=== PATIENT | male | born 1945 | race Two or more races ===

== ENCOUNTER 2024-09-10 17:08 | Emergency (ER) | payer MEDICARE, MEDICAID, SELFPAY ==
[2024-09-10 17:22] VITALS: BP 135/66; PULSE 83; PULSE 86; RESP 16; RESP 19; TEMP 37; O2SAT 100; O2SAT 99; BMI 19.9
--- NOTE | 2024-09-10 17:34 | PD.EDAMS ---
Altered Mental Status RME/HPI General Chief Complaint: Altered Mental Status Stated Complaint: ALTERED Time Seen by Provider: 09/10/24 17:12 Arrival date/time: 09/10/24 17:08 This section includes all my notes and documentations, including HPI, PE, and ED course. Leeroy Stovall MD HPI: 78-year-old male here to be evaluated with AMS. A bystander called 911 because he was on the ground outside confused. EMS noted glucose of 40 and he was given IV glucose. But GCS was 15 prior and after glucose administration. Patient thinks he fell. But he doesn't remember exactly. He has pain in the left rib cage. He doesn't remember the ambulance ride. He knows he was born in 1946 but can't calculate his age. Does not know the current year. Knows he is in [place]. He reports no headache or dizziness. No neck pain or back pain. No chest pain or shortness of breath. No pain in the arms or legs. No other complaints. ROS: All negative except as documented in HPI. Physical Exam: General: Alert. No acute distress when remaining still. Eyes: Conjunctivae and lids clear. EOMI. PERRL. ENT: No nasal congestion. Pharynx normal. Tympanic membrane normal bilaterally. Neck: Supple. No tenderness. Heart: RRR. Lungs: No respiratory distress. Good air movement. No rhonchi, wheezing, rales. Chest: Tenderness of the left rib cage laterally. Abdomen: Soft and nontender. Normal bowel sounds. No distension. No rebound or guarding. Back: No tenderness. Legs: No clubbing, cyanosis, edema. Skin: Warm and dry. Neuro: Alert and oriented X 2. Cranial Nerves II-XII grossly intact. No peripheral motor deficits. Musculoskeletal: All major joints and bones are not tender with no limited ROM. I ordered diagnostic tests. At 6 PM on 09/10/2024, the care of the patient was transferred to Dr. ROMERO. Leeroy Stovall MD Related Data Home Medications ?Medication ?Instructions ?Recorded ?Confirmed No Known Home Medications 07/02/22 07/02/22 Allergies Allergy/AdvReac Type Severity Reaction Status Date / Time No Known Allergies Allergy Verified 04/16/24 16:38 Course Quality Measures none Vital Signs Vital signs: Vital Signs Temperature 98.6 F 09/10/24 17:22 Pulse Rate 83 09/10/24 17:22 Respiratory Rate 16 09/10/24 17:22 Blood Pressure 135/66 H 09/10/24 17:22 Pulse Oximetry (%) 100 09/10/24 17:22 Oxygen Delivery Method Room Air 09/10/24 17:22 Altered Mental Status Patient data External records reviewed:: None Clinical information provided by:: patient and EMS Social determinants that could affect healthcare access:: none (Probable homelessness) Patient has the following chronic illnesses:: Unknown How is presenting disease/condition affected by chronic disease/condition?: exacerbated by Evaluation data The following diagnostics were reviewed and interpreted by me:: other (specify) (Diagnostic test results pending) Lab and/or radiology exams considered but not ordered:: None Interpretation Summary: Diagnostic test results pending Medications / Prescriptions Medications or Prescriptions considered but not ordered:: None Medication administrations:: None Consultations Consultation(s) initiated? (list below): No Diagnosis Differential diagnosis altered mental status: alcoholic intoxication, altered mental status, delirium, dementia, hypoglycemia, hyponatremia, subarachnoid hemorrhage and sepsis Most likely diagnosis given after review of the tests above:: Diagnostic test results pending Admission Indicated Admission indicated?: not indicated Explain why admission is indicated or not indicated:: Diagnostic test results pending Admission Request Was there a request for admission?: No Disposition Plan Disposition Plan: other (specify) (Diagnostic test results pending) Discharge Plan Prescriptions/Referrals Prescriptions/Med Rec: No Action No Known Home Medications Referrals: No Primary/Family,Physician [Primary Care Provider] - In 1 week Problem List Clinical Impression: Altered mental status Patient/Caregiver Discharge Instructions Print Language: [place]
--- NOTE | 2024-09-10 17:40 | XR_ITS ---
Examination: AP chest single view Technique: AP portable semiupright chest single view Exam date and time: September 10, 2024 1809 hrs. Comparison June 29, 2024 Indications: Shortness of breath today Findings: Normal heart size Lungs are clear Mild elevation left hemidiaphragm Moderate osteopenia Impression: No pneumonia or pulmonary edema
--- NOTE | 2024-09-10 17:40 | EKG_ITS ---
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: : 1945 Requested By: Leeroy Ham Order Number: [id number] Reading MD: Leeroy Ham Measurements Intervals [place] Rate: 86 P: NM: QRS: 103 QRSD: 91 T: 109 QT: 381 QTc: 458 Interpretive Statements SUPRAVENTRICULAR RHYTHM MARKED RIGHT AXIS DEVIATION [QRS AXIS > 100] ST ELEVATION, PROBABLY EARLY REPOLARIZATION [ST ELEVATION WITH NORMALLY INFLECTED T WAVE] Compared to ECG 06/29/2024 10:34:51 Supraventricular rhythm now present Right-axis deviation now present ST (T wave) deviation now present Early repolarization now present Sinus rhythm no longer present /store/S0/[id number]/[id number].pdf
--- NOTE | 2024-09-10 17:40 | XR_ITS ---
Examination: CT cervical spine without contrast 2-D sagittal reconstructions 2-D coronal reconstructions 3-D reconstructions. Exam date and time:September 10, 2024 at 2039 hrs. Indications: Patient fell today with into the neck, neck pain CTDI:vol (mGy) 7.29 DLP: (mGycm) 157 Technique: Multiple 2 mm axial sections of the cervical spine have been obtained. The coronal and sagittal reconstructions have been obtained. 3-D reconstructions have been obtained. Low dose protocols were performed. One or more of the following dose reduction techniques were used; automated exposure control, adjustment of the mA and/or KV according to patient size, use of iterative reconstruction technique. Findings: Axial sections demonstrate intact base of the skull. C1 exhibit satisfactory relationship to the odontoid. No acute cervical vertebral body fracture seen. Alignment posterior spinous processes satisfactory. Impression: No acute cervical fracture.
--- NOTE | 2024-09-10 17:40 | XR_ITS ---
Examination: CT brain head without contrast. 2-D sagittal coronal reconstructions Date and time of exam:September 10, 20242038 hrs. Indications: Altered mental status today CTDI: vol (mGy):46.2 DLP: (mGycm):931 Technique: Multiple CT axial sections of the brain have been obtained, 5 mm slice thickness. Contrast has not been administered. 2-D sagittal, coronal reconstructions have been obtained Low dose protocols were performed. One or more of the following dose reduction techniques were used; automated exposure control, adjustment of the mA and/or KV according to patient size, use of iterative reconstruction technique. Findings: No significant ventricular enlargement. Encephalomalacia left frontal lobe Intra-axial or extra-axial hemorrhage density is not seen. No mass effect or midline shift Basal cisterns are not remarkable. Fourth ventricle is midline. Cranial vault intact. Impression: Negative for acute hemorrhage, mass effect or midline shift Advise clinical correlation and follow-up accordingly
[2024-09-10 18:19] LABS: Lactate (Lactic Acid) 1.9 mMol/L (0.4-2.0)
[2024-09-10 18:23] LABS: Beta Hydroxybutyrate 0.2 mmol/L (<0.6)
[2024-09-10 18:34] LABS: Basophils % (Auto) 1 % (0-2.5); Eosinophils % (Auto) 1 % (0-10); Hematocrit 37.8 % (41.0-53.0); Hemoglobin 12.3 g/dL (13.5-16.0); Immature Granulocytes % (Auto) 0 % (0-0); Immature Granulocytes Auto 0.02 Thou/mm3 (0.00-0.00); Lymphocytes # (Auto) 1.2 Thou/mm3 (1.0-4.8); Lymphocytes % (Auto) 20 % (10-50); Mean Corpuscular HGB Conc 32.5 g/dl (31.0-37.0); Mean Corpuscular Hemoglobin 31.5 pg (25.0-35.0); Mean Corpuscular Volume 97 fL (80-100); Monocytes # (Auto) 0.5 Thou/mm3 (0.0-0.8); Monocytes % (Auto) 9 % (0-12); Neutrophils # (Auto) 4.3 Thou/mm3 (1.8-7.7); Neutrophils % (Auto) 71 % (37-80); Nucleated Red Blood Cell % 0 /100 WBC (0); Platelet Count 214 Thou/mm3 (140-440); RDW Standard Deviation 49.6 fL (35.1-43.9); Red Blood Count 3.91 Miln/mm3 (4.50-5.90); White Blood Count 6.2 Thou/mm3 (3.8-10.6)
[2024-09-10 18:37] LABS: D-Dimer 544 ng/mL (<600)
[2024-09-10 18:43] LABS: B-Type Natriuretic Peptide 316 pg/mL (0-100)
[2024-09-10 18:44] LABS: Sed Rate (ESR) 12 mm/hr (0-20)
[2024-09-10 18:55] LABS: Acetaminophen < 2.0 mcg/mL (10.0-20.0); Alanine Aminotransferase 49 U/L (10-49); Albumin/Globulin Ratio 1.8 (1.2-2.2); Alcohol, Blood Medical 206.3 mg/dL (0-10.0); Alkaline Phosphatase 72 U/L (46-116); Anion Gap 6 (7-16); Aspartate Amino Transferase 79 U/L (0-34); BUN/Creatinine Ratio 9 Ratio (12-20); Bilirubin,Total 0.5 mg/dL (0.3-1.2); Blood Urea Nitrogen 12 mg/dL (9-23); C-Reactive Protein 0.4 mg/dL (0.0-0.9); Calcium 8.9 mg/dL (8.3-10.6); Calcium (Corrected) 8.9 mg/dL (8.5-10.1); Carbon Dioxide 28.8 mMol/L (20.0-31.0); Chloride 100 mMol/L (98-107); Creatine Kinase 336 U/L (34-171); Creatinine (Component) 1.3 mg/dL (0.6-1.3); Estimated Creatinine Clearance 39.9 mL/min (>60); Globulin 2.2 gm/dL (2.3-3.5); Glucose 149 mg/dL (74-106); Magnesium 2.1 mg/dL (1.6-2.6); Osmolality,Calculated 272 (275-295); Potassium 4.3 mMol/L (3.4-5.1); Procalcitonin 0.06 ng/ml (0.0-0.49); Salicylate < 3.0 mg/dL; Sodium 135 mMol/L (136-145); Thyroid Stimulating Hormone 3.37 uIU/mL (0.55-4.78); Total Protein 6.2 gm/dL (5.7-8.2); Troponin I < 0.020 ng/mL (0.0-0.045); eGFR 56 See Note
[2024-09-10 18:56] LABS: Partial Thromboplastin Time 25.6 Seconds (22.0-36.0); Prothrombin Time 11.4 Seconds (9.0-12.2)
[2024-09-10 19:20] VITALS: BP 108/62; PULSE 101; RESP 17; TEMP 36.6; O2SAT 99
[2024-09-10 19:30] LABS: Collection Type, Urine Clean Catch; RBC,Urine 0 /hpf (0-3); WBC,Urine 0 /hpf (0-5)
[2024-09-10 19:35] LABS: Bilirubin,Urine Negative (Negative); Blood,Urine Negative (Negative); Clarity,Urine Clear (Clear/Hazy); Color,Urine Colorless (Lt Yel-Yel); Culture Indicated,Urine Not Indicated; Glucose, Urine Negative (Negative); Ketones,Urine Negative (Negative); Leukocyte Esterase,Urine Negative (Negative); Nitrite,Urine Negative (Negative); Protein,Urine Negative (Neg - Trace); Specific Gravity,Urine 1.005 (1.001-1.035); Squamous Epithelial Cell,Urine < 1 /hpf (0-5); Urobilinogen,Urine Negative mg/dL (0.0-1.0)
[2024-09-10 19:40] LABS: Amphetamine/Methamp Scrn,U Negative (Negative); Barbiturate Screen,Urine Negative (Negative); Benzodiazepines Screen,Urine Negative (Negative); Benzoylecgonine Screen, Ur Negative (Negative); Fentanyl Screen,Urine Negative (Negative); Opiate Screen,Urine Negative (Negative); THC Screen,Urine Negative (Negative)
--- NOTE | 2024-09-10 19:40 | EDNOTE_ITS ---
Emergency Room Addendum Addendum Narrative: 1800: Care assumed from Dr. Stovall, the previous shift emergency physician. Past medical, surgical, social and family history reviewed. Vitals and home medications reviewed. I will assume the care of the patient at this time, pending remainder of diagnostic tests and final disposition. Please refer to the emergency department record for history and examination from initial visit.? Physical exam by me shows patient under no acute distress at this time. 2350: Patient remains clinically stable throughout the emergency department visit. Re-assessment at the time of disposition demonstrates that the patient is in no acute distress. We reviewed all the results, analysis, and treatment plans. Patient is amenable to discharge. Strict return precautions were outlined. Patient was discharged in stable condition. Diagnoses: AMS, Alcohol intoxication, Hypoglycemia. RADIOLOGY Procedure(s): CT head/brain wo [facility] Accession Number(s): [id number] cc: Leeroy Stovall MD; Alli Beckman MD; NO PRIMARY/FAMILY,PHYSICIAN~ Examination: CT brain head without contrast. 2-D sagittal coronal reconstructions Date and time of exam:September 10, 20242038 hrs. Indications: Altered mental status today CTDI: vol (mGy):46.2 DLP: (mGycm):931 Technique: Multiple CT axial sections of the brain have been obtained, 5 mm slice thickness. Contrast has not been administered. 2-D sagittal, coronal reconstructions have been obtained Low dose protocols were performed. One or more of the following dose reduction techniques were used; automated exposure control, adjustment of the mA and/or KV according to patient size, use of iterative reconstruction technique. Findings: No significant ventricular enlargement. Encephalomalacia left frontal lobe Intra-axial or extra-axial hemorrhage density is not seen. No mass effect or midline shift Basal cisterns are not remarkable. Fourth ventricle is midline. Cranial vault intact. Impression: Negative for acute hemorrhage, mass effect or midline shift Advise clinical correlation and follow-up accordingly Dictated By: Alli Beckman MD Procedure(s): XR chest 1V portable Accession Number(s): [id number] cc: Leeroy Stovall MD; Alli Beckman MD; NO PRIMARY/FAMILY,PHYSICIAN~ Examination: AP chest single view Technique: AP portable semiupright chest single view Exam date and time: September 10, 2024 1809 hrs. Comparison June 29, 2024 Indications: Shortness of breath today Findings: Normal heart size Lungs are clear Mild elevation left hemidiaphragm Moderate osteopenia Impression: No pneumonia or pulmonary edema Dictated By: Alli Beckman MD Procedure(s): CT cervical spine wo con Accession Number(s): [id number] cc: Leeroy Stovall MD; Alli Beckman MD; NO PRIMARY/FAMILY,PHYSICIAN~ Examination: CT cervical spine without contrast 2-D sagittal reconstructions 2-D coronal reconstructions 3-D reconstructions. Exam date and time:September 10, 2024 at 2039 hrs. Indications: Patient fell today with into the neck, neck pain CTDI:vol (mGy) 7.29 DLP: (mGycm) 157 Technique: Multiple 2 mm axial sections of the cervical spine have been obtained. The coronal and sagittal reconstructions have been obtained. 3-D reconstructions have been obtained. Low dose protocols were performed. One or more of the following dose reduction techniques were used; automated exposure control, adjustment of the mA and/or KV according to patient size, use of iterative reconstruction technique. Findings: Axial sections demonstrate intact base of the skull. C1 exhibit satisfactory relationship to the odontoid. No acute cervical vertebral body fracture seen. Alignment posterior spinous processes satisfactory. Impression: No acute cervical fracture. Dictated By: Alli Beckman MD
[2024-09-10 21:02] VITALS: BP 115/62; PULSE 79; RESP 19; TEMP 36.9; O2SAT 96
[2024-09-10 23:08] VITALS: BP 90/55; PULSE 93; RESP 18; TEMP 36.9; O2SAT 96
[2024-09-11 00:46] VITALS: BP 114/69; PULSE 84; RESP 16; TEMP 36.6; O2SAT 98
== END 2024-09-11 00:50 | disposition home or self-care (01) ==
PROVIDERS: Emergency Medicine; Emergency Provider Emergency Medicine
DX: F10.129 Alcohol abuse with intoxication, unspecified (principal); E16.2 Hypoglycemia, unspecified; R41.82 Altered mental status, unspecified; R06.02 Shortness of breath; M54.2 Cervicalgia; W19.XXXA Unspecified fall, initial encounter
CPT/HCPCS: 36415; 36600; 70450; 71045; 72125; 80053; 80307; 80320; 80329; 81001; 82010; 82550; 82803; 83605; 83735; 83880; 84145; 84443; 84484; 85025; 85379; 85610; 85652; 85730; 86140; 87040; 87400; 87811; 93005; 99285; G0480

== ENCOUNTER 2024-11-13 13:43 | Emergency (ER) | payer MEDICARE, MEDICAID, SELFPAY ==
[2024-11-13 13:46] VITALS: PULSE 82; RESP 16; O2SAT 96; BMI 21.4
[2024-11-13 13:57] VITALS: BP 118/66; PULSE 62; RESP 16; TEMP 36.6; O2SAT 96
--- NOTE | 2024-11-13 14:30 | PD.EDALCOH ---
ED Alcohol RME/HPI General Chief Complaint: Alcohol Stated Complaint: ALCOHOL Time Seen by Provider: 11/13/24 14:17 Arrival date/time: 11/13/24 13:43 This is an 79-year-old male that comes into the emergency room comes into the emergency room with complaints of being hungry. Patient states he wants a sandwich. Patient is homeless. Patient denies any fever, nausea, vomiting, diarrhea,. Patient has no other complaints. Patient has a long hx of alcoholism. Pt admits to drinking Related Data Home Medications ?Medication ?Instructions ?Recorded ?Confirmed No Known Home Medications 07/02/22 09/10/24 Allergies Allergy/AdvReac Type Severity Reaction Status Date / Time No Known Allergies Allergy Verified 11/13/24 13:46 Review of Systems Review of Systems Systems Reviewed: All systems reviewed, normal except as documented Past Medical History Past Medical History CARDIAC: Negative Congestive Heart Failure RESPIRATORY: Negative Chronic Obstructive Pulmonary Disease (COPD) GENITOURINARY: Negative Renal Disease ENDOCRINE: Negative Diabetes Mellitus Type 1 or Diabetes Mellitus Type 2 OTHER HISTORY: Positive Blood Transfusions Social History SMOKING STATUS: Smoker, status unknown ED Exam General General appearance: Present alert and in no apparent distress Head Head exam: Present atraumatic Eye Eye exam: Present normal appearance, PERRL and EOMI ENT ENT exam: Present normal exam, normal oropharynx and mucous membranes moist Neck Neck exam: Present normal inspection, full ROM and trachea midline Chest Chest inspection: Present normal inspection and symmetric chest wall rise Respiratory Respiratory exam: Present normal lung sounds bilaterally Cardiovascular Cardiovascular exam: Present regular rate Abdominal Exam Abdominal exam: Present soft Extremities Exam Extremities exam: Present normal inspection and full ROM Back Exam Back exam: Present normal inspection and full ROM Neurological Exam Neurological exam: Present alert, oriented X3 and CN II-XII intact Psychiatric Psychiatric exam: Present normal affect and normal mood Skin Skin exam: Present warm, dry and intact Course Quality Measures none Vital Signs Vital signs: Vital Signs Temperature 97.8 F 11/13/24 13:57 Pulse Rate 62 11/13/24 13:57 Respiratory Rate 16 11/13/24 13:57 Blood Pressure 118/66 11/13/24 13:57 Pulse Oximetry (%) 96 11/13/24 13:57 Oxygen Delivery Method Room Air 11/13/24 13:57 Discharge Plan Plan Patient Disposition: HOME (Self Care) Patient condition on transfer: Stable Prescriptions/Referrals Prescriptions/Med Rec: No Action No Known Home Medications Problem List Clinical Impression: Alcoholic intoxication Patient/Caregiver Discharge Instructions Discharge Activity: activity as tolerated Education Materials: ED Alcohol Intoxication Additional Instructions: Follow up with primary provider in 1-2 days. Come back to ED if symptoms change or worsen Print Language: Polish Stand Alone Forms: Vi Award Info., Patient Portal Info Letter CHANO/ANA Supervising Physician LIANE Supervising Physician: haris Wallace MDM Narrative MDM Narrative: This is an 79-year-old male that comes into the emergency room comes into the emergency room with complaints of being hungry. Patient states he wants a sandwich. Patient is homeless. Patient denies any fever, nausea, vomiting, diarrhea,. Patient has no other complaints. Patient has a long hx of alcoholism. Pt admits to drinking Patient given food and beverage in the ED. He denies any complaints. Will dc patient after he eats Patient data External records reviewed:: [facility] previous records Clinical information provided by:: patient Social determinants that could affect healthcare access:: none (homeless) Patient has the following chronic illnesses:: hx alcoholism How is presenting disease/condition affected by chronic disease/condition?: exacerbated by Evaluation data The following diagnostics were reviewed and interpreted by me:: other (specify) (none ) Lab and/or radiology exams considered but not ordered:: none Interpretation Summary: none Medications / Prescriptions Medications or Prescriptions considered but not ordered:: none Medication administrations:: none Consultations Consultation(s) initiated? (list below): No Diagnosis Most likely diagnosis given after review of the tests above:: alcohol intoxication Admission Indicated Admission indicated?: not indicated Admission Request Was there a request for admission?: No Disposition Plan Disposition Plan: Discharge Discharge Attestation Discharge Attestation: The patient and all family members were given an opportunity to ask questions and understood the discharge instructions. Discharge instructions specifically effects, indications for sooner follow up or return to the emergency department, and the expected course of current diagnosis. Patient condition: Stable
== END 2024-11-13 16:28 | disposition home or self-care (01) ==
LOC: SERX 14:34
PROVIDERS: Emergency Provider Emergency Medicine; PCP Family Medicine
DX: F10.129 Alcohol abuse with intoxication, unspecified (principal); Z59.00 Homelessness unspecified
CPT/HCPCS: 99283

== ENCOUNTER 2025-02-25 04:04 | Emergency (ER) | payer MEDICARE, MEDICAID, SELFPAY ==
--- NOTE | 2025-02-25 04:11 | PD.EDNV ---
Nausea/Vomit./Diarrhea-RME/HPI General Chief complaint: Nausea/Vomiting/Diarrhea Stated complaint: DIARRHEA Arrival date/time: 02/25/25 04:04 RME / HPI RME / HPI Narrative: This section includes all my notes and documentations, including HPI, PE, and ED course. Leeroy Stovall MD HPI: 79 y/o male presents to ED c/o bowel incontinence x approximately 1 hour. He woke up covered in his feces, got up, sat on the toilet and began to empty his feces from his pants into the toilet. Patient has never lost control of his bowels before. He was unable to defecate anymore once on the toilet. Patient has full feeling, and denies any numbness or tingling. No other complaints. ROS: All negative except as documented in HPI. Physical Exam: General: Alert and oriented. Eyes: Conjunctivae and lids clear. ENT: No nasal congestion. Neck: Supple. Lungs: No respiratory distress. Skin: Warm and dry. Neuro: Alert and oriented X 3. Physical Exam: General: Alert and oriented. No acute distress when remaining still. Eyes: Conjunctivae and lids clear. ENT: No nasal congestion. Neck: Supple. Heart: RRR. Lungs: No respiratory distress. Good air movement. No rhonchi, wheezing, rales. Abdomen: Soft and nontender. Normal bowel sounds. No distension. No rebound or guarding. Back: No CVA tenderness. Skin: Warm and dry. Neuro: Alert and oriented X 3. Physical Exam: General: Alert and oriented. No acute distress. Eyes: Conjunctivae and lids clear. EOMI. PERRL. ENT: No nasal congestion. Pharynx normal. Tympanic membrane normal bilaterally. Neck: Supple. No lymphadenopathy. No JVD. Heart: RRR. Lungs: No respiratory distress. Good air movement. No rhonchi, wheezing, rales. Chest: No tenderness. Abdomen: Soft and nontender. Normal bowel sounds. No distension. No rebound or guarding. Back: No CVA tenderness. Legs: No clubbing, cyanosis, edema. Skin: Warm and dry. Neuro: Alert and oriented X 3. Cranial Nerves II-XII grossly intact. No peripheral motor deficits. Musculoskeletal: All major joints and bones are not tender with no limited ROM. I reviewed EMS notes. I reviewed all diagnostic test results. My interpretation of the EKG is My interpretation of the chest x-ray is My review of the CT report is Blood tests and urine tests At this point, diagnoses include Treatment here included Significant improvement Not yet done: I discussed the case with our hospitalist. About the presentation and exam and diagnostics and treatments here. And need of further care in the hospital. Will accept the patient. Not yet done: Based on my best medical judgment, made decision no further evaluation or treatment indicated at this time. Patient understands and agrees to the discharge instructions customized and printed, see below. Leeroy Stovall MD Related Data Home Medications ?Medication ?Instructions ?Recorded ?Confirmed No Known Home Medications 07/02/22 09/10/24 Allergies Allergy/AdvReac Type Severity Reaction Status Date / Time No Known Allergies Allergy Verified 02/25/25 04:32 Review of Systems Review of Systems Systems Reviewed: All systems reviewed, normal except as documented Past Medical History Past Medical History OTHER HISTORY: Positive Blood Transfusions ED Exam Narrative Physical exam: Refer to HPI above Course Quality Measures none Vital Signs Vital signs: Vital Signs Temperature 98.0 F 02/25/25 04:23 Pulse Rate 70 02/25/25 04:23 Respiratory Rate 18 02/25/25 04:23 Blood Pressure 157/80 H 02/25/25 04:23 Pulse Oximetry (%) 99 02/25/25 04:23 Oxygen Delivery Method Room Air 02/25/25 04:23 Nausea/Vomiting/Diarrhea MDM Narrative MDM Narrative:: Scribe Attestation: ILisa, am scribing for and in the presence of Dr. Stovall. Provider Notation: Although this document has been carefully reviewed, there may still be some phonetic and other typographical errors.? These errors are purely grammatical due to imperfections in the software program and should not be construed in any way to? compromise the substance of the patient's medical care during this visit. 79 y/o male presents to ED c/o bowel incontinence x approximately 1 hour. He woke up covered in his feces, got up, sat on the toilet and began to empty his feces from his pants into the toilet. Patient has never lost control of his bowels before. He was unable to defecate anymore once on the toilet. Patient has full feeling, and denies any numbness or tingling. No other complaints. Patient data External records reviewed:: [facility] previous records (Reviewed prior ED records from 11/13/24. Patient was seen for Alcoholic intoxication.) and EMS form Clinical information provided by:: patient and EMS Social determinants that could affect healthcare access:: housing (Homeless) Patient has the following chronic illnesses:: None reported How is presenting disease/condition affected by chronic disease/condition?: no chronic disease Evaluation data Lab and/or radiology exams considered but not ordered:: None Medications / Prescriptions Medications / Prescriptions considered but not ordered:: None Consultations Consultation(s) initiated? (list below): No Diagnosis Nausea Differential Diagnosis: traveler's diarrhea, food poisoning, gastroenteritis, clostridium difficile infection, dehydration and other (Influenza, COVID-19, Colitis.) Admission Indicated Admission indicated?: not indicated Explain why admission is indicated or not indicated:: Signed-out to oncoming ED provider. Admission Request Was there a request for admission?: No Disposition Plan Disposition Plan: other (specify) (Signed-out to oncoming ED provider.) Discharge Plan Prescriptions/Referrals Prescriptions/Med Rec: No Action No Known Home Medications Patient/Caregiver Discharge Instructions Print Language: [place]
[2025-02-25 04:23] VITALS: BP 157/80; PULSE 70; RESP 18; TEMP 36.7; O2SAT 99
[2025-02-25 04:35] VITALS: PULSE 98; RESP 16; O2SAT 98
[2025-02-25 06:54] LABS: Lactate (Lactic Acid) 1.1 mMol/L (0.4-2.0)
[2025-02-25 06:58] LABS: Basophils % (Auto) 1 % (0-2.5); Eosinophils # (Auto) 0.1 Thou/mm3 (0.0-0.5); Eosinophils % (Auto) 1 % (0-10); Hematocrit 34.8 % (41.0-53.0); Immature Granulocytes % (Auto) 1 % (0-0); Immature Granulocytes Auto 0.03 Thou/mm3 (0.00-0.00); Lymphocytes # (Auto) 0.9 Thou/mm3 (1.0-4.8); Lymphocytes % (Auto) 16 % (10-50); Mean Corpuscular HGB Conc 34.5 g/dl (31.0-37.0); Mean Corpuscular Hemoglobin 32.3 pg (25.0-35.0); Mean Corpuscular Volume 94 fL (80-100); Monocytes # (Auto) 0.8 Thou/mm3 (0.0-0.8); Monocytes % (Auto) 14 % (0-12); Neutrophils # (Auto) 3.7 Thou/mm3 (1.8-7.7); Neutrophils % (Auto) 68 % (37-80); Nucleated Red Blood Cell % 0 /100 WBC (0); Platelet Count 139 Thou/mm3 (140-440); RDW Standard Deviation 47.1 fL (35.1-43.9); Red Blood Count 3.72 Miln/mm3 (4.50-5.90); White Blood Count 5.5 Thou/mm3 (3.8-10.6)
--- NOTE | 2025-02-25 07:05 | PD.EDNV ---
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 Per medics, patient reported bowel incontinence. Reportedly patient had woken up covered in his feces. Patient denies bowel incontinence in the past. Additionally complains of a fullness sensation in his abdomen. No other associated symptoms or complaints reported. Denies fever, chills, sweating. Denies chest pain, cough, shortness of breath. Denies nausea, vomiting. Denies dysuria, urinary frequency and urgency. Related Data Home Medications ?Medication ?Instructions ?Recorded ?Confirmed No Known Home Medications 07/02/22 09/10/24 Allergies Allergy/AdvReac Type Severity Reaction Status Date / Time No Known Allergies Allergy Verified 02/25/25 04:32 Review of Systems Review of Systems Narrative Review of Systems: GEN: No fever, no chills, no weight loss EYES: No discharge, no visual changes, no pain HEENT: No ear pain, no congestion, no sore throat PULM: No shortness of breath, no cough, no congestion CV: No chest pain, no dyspnea on exertion, no palpitations GI: No nausea, no vomiting, +diarrhea, no pain, no constipation : No frequency, no urgency, no dysuria MUSC/SKEL: No joint pain, no back pain SKIN: No rash PSYCH: No hallucinations, no depression HEME/LYMPH: No easy bleeding or bruising tendencies NEURO: No weakness, no headache Past Medical History Past Medical History CARDIAC: Negative Cardiac Disorders or Congestive Heart Failure RESPIRATORY: Negative Chronic Obstructive Pulmonary Disease (COPD) or Asthma GENITOURINARY: Negative Renal Disease ENDOCRINE: Negative Diabetes Mellitus Type 1 or Diabetes Mellitus Type 2 HEMATOLOGIC: Negative Sickle Cell Disease OTHER HISTORY: Positive Blood Transfusions Family History FAMILY HISTORY: Negative Family Cardiac Disorders Social History SMOKING STATUS: Never smoker ED Exam Narrative Physical exam: GENERAL APPEARANCE: alert and oriented x 4, well-developed, well-nourished, no acute distress, poor hygiene HEENT: Normocephalic, atraumatic; pupils equal, round, reactive to light; EOMI; mucous membranes pink, moist; oropharynx clear NECK: Supple LUNGS: CTABL; no wheezes, no rales, no rhonchi HEART: Regular rate, regular rhythm; normal S1, S2; no murmurs ABDOMEN: non distended; normal BS; soft, no tenderness, no guarding, no rebound; no masses, no organomegaly, no hernia BACK: no CVA tenderness EXTREMITIES: atraumatic; no edema NEUROLOGIC: awake; alert and oriented x4; cranial nerves II-XII grossly intact; no focal sensory or motor deficits PSYCHIATRIC: appropriate mood and affect SKIN: warm, dry, normal color; no rashes Course Quality Measures none Orders Category Date Time Status CBC Stat Lab 02/25/25 06:46 Completed CMP [Comprehensive Metabolic Panel] Stat Lab 02/25/25 06:43 Completed Lactate (Lactic Acid) Stat Lab 02/25/25 06:46 Completed Vital Signs Vital signs: Vital Signs Temperature 98.0 F 02/25/25 04:23 Pulse Rate 70 02/25/25 04:23 Respiratory Rate 18 02/25/25 04:23 Blood Pressure 157/80 H 02/25/25 04:23 Pulse Oximetry (%) 99 02/25/25 04:23 Oxygen Delivery Method Room Air 02/25/25 04:23 Pulse ox is 99% on room air which is adequate. Nausea/Vomiting/Diarrhea MDM Narrative MDM Narrative:: Tori Cameron am scribing for and in the presence of Dr. Saleem. 1037: On reassessment the patient is resting comfortably. Per RN, he tolerated po trial. Patient remains clinically stable throughout the emergency department visit. We reviewed all the results, analysis, and treatment plans. Patient is amenable to discharge. Strict return precautions were outlined. Patient data External records reviewed:: [facility] previous records (I reviewed ED visit on 11/13/2024 for alcohol intoxication ) and EMS form Clinical information provided by:: patient and EMS Social determinants that could affect healthcare access:: housing (currently staying at a homeless residential ) Patient has the following chronic illnesses:: none reported How is presenting disease/condition affected by chronic disease/condition?: no chronic disease Evaluation data The following diagnostics were reviewed and interpreted by me:: lab results Lab and/or radiology exams considered but not ordered:: None Interpretation Summary: No leukocytosis Medications / Prescriptions Medications / Prescriptions considered but not ordered:: None Medication administrations:: None Consultations Consultation(s) initiated? (list below): No Diagnosis Nausea Differential Diagnosis: food poisoning, gastroenteritis, drug-induced nausea and vomiting and dehydration Most likely diagnosis given after review of the tests above:: Diarrhea Admission Indicated Admission indicated?: not indicated Admission Request Was there a request for admission?: No Disposition Plan Disposition Plan: Discharge Discharge Attestation Discharge Attestation: The patient and all family members were given an opportunity to ask questions and understood the discharge instructions. Discharge instructions specifically effects, indications for sooner follow up or return to the emergency department, and the expected course of current diagnosis. Patient condition: Stable Discharge Plan Plan Patient Disposition: HOME (Self Care) Prescriptions/Referrals Prescriptions/Med Rec: No Action No Known Home Medications Referrals: Eugene Franks MD [Primary Care Provider] - In 1 week Problem List Clinical Impression: Diarrhea Patient/Caregiver Discharge Instructions Education Materials: Self-Care for Vomiting and Diarrhea, ED Diarrhea, Unknown Cause Print Language: Sinhala Stand Alone Forms: Vi Award Info., Patient Portal Info Letter
[2025-02-25 07:24] LABS: Alanine Aminotransferase 36 U/L (10-49); Albumin, Serum 3.7 gm/dL (3.4-4.8); Albumin/Globulin Ratio 1.9 (1.2-2.2); Alkaline Phosphatase 63 U/L (46-116); Anion Gap 8 (7-16); Aspartate Amino Transferase 41 U/L (0-34); BUN/Creatinine Ratio 14 Ratio (12-20); Bilirubin,Total 0.6 mg/dL (0.3-1.2); Blood Urea Nitrogen 19 mg/dL (9-23); Calcium 8.7 mg/dL (8.3-10.6); Calcium (Corrected) 8.9 mg/dL (8.5-10.1); Carbon Dioxide 27.9 mMol/L (20.0-31.0); Chloride 106 mMol/L (98-107); Creatinine (Component) 1.4 mg/dL (0.6-1.3); Globulin 1.9 gm/dL (2.3-3.5); Glucose 96 mg/dL (74-106); Osmolality,Calculated 285 (275-295); Sodium 142 mMol/L (136-145); Total Protein 5.6 gm/dL (5.7-8.2); eGFR 51 See Note
[2025-02-25 08:08] VITALS: BP 139/82; PULSE 67; RESP 18; TEMP 36.9; O2SAT 99
[2025-02-25 09:47] VITALS: BP 132/83; PULSE 61; O2SAT 98
[2025-02-25 10:15] VITALS: BP 141/82; PULSE 71; RESP 18; TEMP 36.6; O2SAT 100
[2025-02-25 11:17] VITALS: BP 139/73; PULSE 93; RESP 17; TEMP 37.1; O2SAT 98
--- NOTE | 2025-02-25 11:17 | PC.CC ---
Sales Superintendent assisted with coordination of transportation- Uber was set up to transport to [facility] [place], pickle processor 11:14.
== END 2025-02-25 11:19 | disposition home or self-care (01) ==
PROVIDERS: Emergency Provider Emergency Medicine; PCP Family Medicine
DX: R19.7 Diarrhea, unspecified (principal); Z59.01 Sheltered homelessness
CPT/HCPCS: 36415; 80053; 83605; 85025

== ENCOUNTER 2025-03-10 18:01 | Emergency (ER) | payer MEDICARE, MEDICAID, SELFPAY ==
[2025-03-10 18:33] VITALS: BP 157/80; PULSE 77; RESP 18; TEMP 37.2; O2SAT 98; BMI 18.3
--- NOTE | 2025-03-10 18:57 | PD.EDRME ---
Rapid Medical Screening Exam RME Arrival date/time: 03/10/25 18:01 79M with history of homelessness and dementia presents to ED with friend for evaluation for placement. According to friend, Torsten MYLES has a place for him in the next few days and patient just needs to be evaluated. Patient can walk with assistance. Chief Complaint: General Adult/Misc Complain Vital signs: Vital Signs Temperature 98.9 F 03/10/25 18:33 Pulse Rate 77 03/10/25 18:33 Respiratory Rate 18 03/10/25 18:33 Blood Pressure 157/80 H 03/10/25 18:33 Pulse Oximetry (%) 98 03/10/25 18:33 Oxygen Delivery Method Room Air 03/10/25 18:33
[2025-03-10 23:02] VITALS: BP 135/75; PULSE 75; RESP 18; TEMP 37.2; O2SAT 98
--- NOTE | 2025-03-11 02:54 | PC.NURSE ---
PT AWAKE ,CALM, AMBULATING TO BATHROOM, NO COMPLAINT, RE ORIENTED.
--- NOTE | 2025-03-11 03:25 | PC.NURSE ---
PT ASLEEP, NO S/S OF ANY PROBLEM.
--- NOTE | 2025-03-11 04:52 | PC.NURSE ---
RE ORIENTED PT OF WHAT IS HE WAITING FOR.
[2025-03-11 06:27] VITALS: BP 149/76; PULSE 81; RESP 18; TEMP 36.7; O2SAT 98
[2025-03-11 07:26] VITALS: BP 131/75; PULSE 59; RESP 16; TEMP 36.8; O2SAT 99
--- NOTE | 2025-03-11 07:47 | PC.NURSE ---
PT GIVEN BREAKFAST TRAY AT THIS TIME WITH REGULAR DIET.
--- NOTE | 2025-03-11 08:05 | EDNOTE_ITS ---
Emergency Room Addendum Addendum Narrative: 0600: Care assumed from Dr. Saleem, the previous shift emergency physician. Past medical, surgical, social and family history reviewed. Vitals and home medications reviewed. I will assume the care of the patient at this time, pending vp digital marketing social media and crm consult for possible placement. Please refer to the emergency department record for history and examination from initial visit.? Physical exam by me at 0805 hours shows patient under no acute distress at this time. Sitting up eating breakfast. No complaints. Patient arrived at 620 PM 03/10/2025, yesterday, and has been here 12 hours already. Patient is requesting housing assistance until his friend is able to get him an apartment. The patient was placed in ED observation care at 03/11/2025 at 0600 hours. The patient was placed in ED observation care pending vp digital marketing social media and crm consult. The patients past medical history, social history, and family history were reviewed. The plan of care will include serial examinations. While in ED observation the patient will have access to water, food, and personal hygiene. If the patient takes home medication(s), they will be continued in ED observation. 0945: No need for physical therapy. Normal gait, witnessed going to the restroom. Patient remains clinically stable throughout the emergency department visit. Re-assessment at the time of disposition demonstrates that the patient is in no acute distress. We reviewed all the results, analysis, and treatment plans. Patient is amenable to discharge. Strict return precautions were outlined. 1006: Patient was discharged in stable condition. ED observation care ended at 03/11/2025 at 0945 hours.
--- NOTE | 2025-03-11 09:59 | PC.NURSE ---
PT AMBULATED AROUND ROOM INDEPENDENTLY WITH STEADY GAIT.
[2025-03-11 10:03] VITALS: BP 157/84; PULSE 81; RESP 19; TEMP 36.9; O2SAT 97
--- NOTE | 2025-03-11 10:13 | PC.CC ---
Per attending physician pt is nopt in need of PT eval and will need resources and transportation to retirement due to Pt being transient. High School Social Studies Tutor set up Uber transportation for Pt to [facility] [place].
--- NOTE | 2025-04-18 05:17 | PD.EDADULT ---
ED General RME/HPI General Chief complaint: General Adult/Misc Complain Stated complaint: Homeless needs eval for placement, dementia Arrival date/time: 03/10/25 18:01 RME / HPI RME / HPI narrative: 03/10/25 18:01 79M with history of homelessness and dementia presents to ED with friend for evaluation for placement. According to friend, Torsten MYLES has a place for him in the next few days and patient just needs to be evaluated. Patient can walk with assistance. Dr. Slaeem?s Main ED Evaluation: 79yo male with a history of homelessness, dementia presents to the ED for possible placement. Patient was brought in by [facility] due to being homeless and his history of dementia. Patient does not have any family he can stay with. He does not have any medical complaints. Related Data Home Medications ?Medication ?Instructions ?Recorded ?Confirmed No Known Home Medications 07/02/22 09/10/24 Allergies Allergy/AdvReac Type Severity Reaction Status Date / Time No Known Allergies Allergy Verified 03/10/25 18:11 Review of Systems Review of Systems Systems Reviewed: All systems reviewed, normal except as documented Past Medical History Past Medical History CARDIAC: Negative Cardiac Disorders or Congestive Heart Failure RESPIRATORY: Negative Chronic Obstructive Pulmonary Disease (COPD) or Asthma GENITOURINARY: Negative Renal Disease ENDOCRINE: Negative Diabetes Mellitus Type 1 or Diabetes Mellitus Type 2 HEMATOLOGIC: Negative Sickle Cell Disease OTHER HISTORY: Positive Blood Transfusions Family History FAMILY HISTORY: Negative Family Cardiac Disorders Social History SMOKING STATUS: Never smoker ED Exam Narrative Physical exam: GENERAL APPEARANCE: alert and oriented x 4, well-developed, well-nourished, no acute distress VITALS: All vitals were reviewed and the pulse ox is 98% on room air, which is normal according to my interpretation. HEENT: Normocephalic, atraumatic; pupils equal, round, reactive to light; EOMI; mucous membranes pink, moist; oropharynx clear NECK: Supple LUNGS: CTABL; no wheezes, no rales, no rhonchi HEART: Regular rate, regular rhythm; normal S1, S2; no murmurs ABDOMEN: non distended; normal BS; soft, no tenderness, no guarding, no rebound; no masses, no organomegaly, no hernia BACK: no CVA tenderness EXTREMITIES: atraumatic; no edema NEUROLOGIC: awake; alert and oriented x4; cranial nerves II-XII grossly intact; no focal sensory or motor deficits PSYCHIATRIC: appropriate mood and affect SKIN: warm, dry, normal color; no rashes Course Quality Measures none Orders Category Date Time Status Diet Regular Diet 03/11/25 Breakfast Active Vital Signs Vital signs: Vital Signs Temperature 98.9 F 03/10/25 18:33 Pulse Rate 77 03/10/25 18:33 Respiratory Rate 18 03/10/25 18:33 Blood Pressure 157/80 H 03/10/25 18:33 Pulse Oximetry (%) 98 03/10/25 18:33 Oxygen Delivery Method Room Air 03/10/25 18:33 Discharge Plan Plan Patient Disposition: HOME (Self Care) Patient condition on transfer: Stable Prescriptions/Referrals Prescriptions/Med Rec: No Action No Known Home Medications Referrals: No Primary/Family,Physician [Primary Care Provider] - In 1 week Problem List Clinical Impression: Homeless, Dementia Patient/Caregiver Discharge Instructions Discharge Activity: activity as tolerated Print Language: Spanish Stand Alone Forms: [employer] Award Info., Patient Portal Info Letter MDM Clinical Information Provided by patient Medical Records Reviewed [facility] (Per chart review, patient was seen here on 02/07/25 for diarrhea.) Meds/Rx Considered, not Ordered None Labs/Rad/Tests considered, not Ordered None Chronic Illness/Social Conditions Add or document further as needed: Hx dementia EKG EKG not done Lab Interpretation Labs: none Imaging Imaging interpretation: none Medication Administration(s) none Diagnosis Differential diagnosis: homelessness, dementia, inability to care for self Most likely dx, and/or detailed dx discussion: see clinical impression below Dispositon Disposition: other (Signed out to Dr. Fowler at 6 AM pending social worker palliative care consultation.)
== END 2025-03-11 10:10 | disposition home or self-care (01) ==
PROVIDERS: Emergency Provider Emergency Medicine
DX: Z02.89 Encounter for other administrative examinations (principal); F03.90 Unspecified dementia, unspecified severity, without behavioral disturbance, psychotic disturbance, mood disturbance, and anxiety; Z59.00 Homelessness unspecified
CPT/HCPCS: 99282

== ENCOUNTER 2025-06-22 09:18 | Emergency (ER) | payer MEDICARE, MEDICAID, SELFPAY ==
[2025-06-22] VITALS (7 sets, daily range): BP systolic 97–155; BP diastolic 68–104; PULSE 80–102; RESP 16–20; TEMP 36.4–37.3; O2SAT 93–97; BMI 20.7
--- NOTE | 2025-06-22 09:33 | EKG_ITS ---
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
--- NOTE | 2025-06-22 09:33 | XR_ITS ---
Examination: CT cervical spine without contrast 2-D sagittal reconstructions 2-D coronal reconstructions 3-D reconstructions. Exam date and time:June 22, 2025, 10:00 AM INDICATIONS: Patient fell today with injury to the neck, neck pain CTDI:vol (mGy) 13.6 DLP: (mGycm) 341 Technique: Multiple 2 mm axial sections of the cervical spine have been obtained. The coronal and sagittal reconstructions have been obtained. 3-D reconstructions have been obtained. Low dose protocols were performed. One or more of the following dose reduction techniques were used; automated exposure control, adjustment of the mA and/or KV according to patient size, use of iterative reconstruction technique. Findings: Axial sections demonstrate intact base of the skull. C1 exhibit satisfactory relationship to the odontoid. No acute cervical vertebral body fracture seen. Alignment posterior spinous processes satisfactory. Advanced disc narrowing C5-C6 Impression: No acute cervical fracture.
--- NOTE | 2025-06-22 09:33 | XR_ITS ---
Examination: CT brain head without contrast. 2-D sagittal coronal reconstructions Date and time of exam:September 21, 2020 5:10 AM, comparison September 10, 2024 INDICATIONS: Ground-level fall today with injury of the head, head pain CTDI: vol (mGy):47.4 DLP: (mGycm):998 Technique: Multiple CT axial sections of the brain have been obtained, 5 mm slice thickness. Contrast has not been administered. 2-D sagittal, coronal reconstructions have been obtained Low dose protocols were performed. One or more of the following dose reduction techniques were used; automated exposure control, adjustment of the mA and/or KV according to patient size, use of iterative reconstruction technique. Findings: No significant ventricular enlargement. Left frontal encephalomalacia Intra-axial or extra-axial hemorrhage density is not seen. No mass effect or midline shift Basal cisterns are not remarkable. Fourth ventricle is midline. Cranial vault intact. Impression: Negative for acute hemorrhage, mass effect or midline shift
--- NOTE | 2025-06-22 09:35 | PD.EDWEAK ---
ED Weakness RME/HPI General Chief complaint: Weakness Stated complaint: WEAKNESS Time Seen by Provider: 06/22/25 09:33 Source: patient and EMS Arrival date/time: 06/22/25 09:18 Mode of arrival: EMS Limitations: no limitations RME / HPI RME / HPI Narrative: Patient is an 79-year-old male with no significant past medical history is in the emergency department brought EMS because of initial concerns of syncope and possible head trauma that was forceful. EMS was also told that there was concerns that patient had been drinking alcohol earlier in the day. The patient denies any head trauma states that nobody hit him. Denies chest pain shortness of breath belly pain palpitations abdominal pain dysuria hematuria melena bloody stools. Denies drugs alcohol smoking. EMS was also concerned that patient was ambulating very unstable. In speaking with the patient he said that his ambulation has been unsteady and worsening over the last few years. No back trauma no back pain no baseline urinary incontinence no saddle anesthesia. No history of IV drug use. Related Data Home Medications ?Medication ?Instructions ?Recorded ?Confirmed No Known Home Medications 07/02/22 09/10/24 Allergies Allergy/AdvReac Type Severity Reaction Status Date / Time No Known Allergies Allergy Verified 03/10/25 18:11 Review of Systems Review of Systems Systems Reviewed: All systems reviewed, normal except as documented Past Medical History Past Medical History OTHER HISTORY: Positive Blood Transfusions Family History FAMILY HISTORY: Negative Family Cardiac Disorders Social History SMOKING STATUS: Never smoker ED Exam General Limitations: Present no limitations General appearance: Present alert and in no apparent distress Head Head exam: Present atraumatic and normocephalic Eye Eye exam: Present normal appearance, PERRL and EOMI ENT ENT exam: Present normal exam and normal oropharynx Neck Neck exam: Present normal inspection, full ROM and trachea midline; Absent tenderness, meningismus or lymphadenopathy Chest Chest inspection: Present normal inspection and symmetric chest wall rise; Absent tenderness Respiratory Respiratory exam: Present normal lung sounds bilaterally; Absent respiratory distress, wheezes or stridor Cardiovascular Cardiovascular exam: Present normal rhythm Abdominal Exam Abdominal exam: Present soft; Absent distention, tenderness or guarding Extremities Exam Extremities exam: Present normal inspection and full ROM; Absent tenderness Back Exam Back exam: Present normal inspection; Absent tenderness Neurological Exam Neurological exam: Present alert, oriented X3, CN II-XII intact and normal gait (Unsteady very wobbly gait) Psychiatric Psychiatric exam: Present normal affect and normal mood Skin Skin exam: Present warm, dry and intact Other Other exam information: GCS 15, alert and oriented x 4 Course Quality Measures none Orders Category Date Time Status EKG (ED ONLY) *Do not use* NOW Care 06/22/25 09:34 Completed IV [Insert IV] NOW Care 06/22/25 09:44 Active MRI Screening NOW Care 06/22/25 20:36 Active MRI Screening NOW Care 06/22/25 20:36 Active Referral Physical Therapy Routine Cons 06/22/25 20:41 Active Referral Physical Therapy Stat Cons 06/22/25 17:[address] cervical spine wo con Stat Exams 06/22/25 09:[address] head/brain wo con Stat Exams 06/22/25 09:33 Completed EKG (ED Only) Stat Exams 06/22/25 09:33 Draft MR head/brain wo con Stat Exams 06/22/25 Ordered Alcohol, Blood Medical Stat Lab 06/22/25 09:38 Completed Alcohol, Blood Medical Stat Lab 06/22/25 18:04 Completed CBC Stat Lab 06/22/25 09:38 Completed CMP [Comprehensive Metabolic Panel] Stat Lab 06/22/25 09:38 Completed Drug Screen,Urine Stat Lab 06/22/25 12:00 Completed Troponin I Stat Lab 06/22/25 09:38 Completed UA, C/S IF [Urinalysis, C/S if Indicated] Stat Lab 06/22/25 12:00 Completed Folic Acid Med 06/22/25 12:19 Discontinued 1 mg PO X1 ONE Nitroglycerin Oint 2% [Nitro-paste Oint 2%] Med 06/22/25 20:44 Discontinued 0.5 inch TOP X1 ONE Ringers Lactated 1000 ml [Lactated Ringers] 1,000 ml Med 06/22/25 09:33 Discontinued IV 999 mls/hr Thiamine Inj [Vitamin B-1 Inj] Med 06/22/25 12:30 Discontinued 100 mg IVP X1 ONE Thiamine Inj [Vitamin B-1 Inj] 100 mg Med 06/22/25 12:19 Discontinued Sodium Chloride 0.9% [Ns] 100 ml IV X1 Vital Signs Vital signs: Vital Signs Temperature 98.2 F 06/22/25 09:38 Pulse Rate 84 06/22/25 09:38 Respiratory Rate 20 06/22/25 09:38 Blood Pressure 123/87 H 06/22/25 09:38 Pulse Oximetry (%) 95 06/22/25 09:38 Oxygen Delivery Method Room Air 06/22/25 09:38 Pulse ox is 95% on room air which is adequate. Weakness [facility] Narrative [facility] Narrative:: Patient is an 79-year-old male is in the emergency department after being brought in by EMS after concerns for possible head trauma and unsteady gait. Vital signs and exam as listed. Concern for acute intracranial injury, cervical spine injury although patient does not have any cervical spine pain. Patient also with unsteady gait, patient states that this is chronic. Also concern for syncope concern for ACS arrhythmia electrolyte abnormality viral syndrome urinary tract infection among others. Ordered labs EKG chest x-ray, CT brain CT cervical spine. Upon standing patient felt lightheaded, provided patient with fluids. Patient does not have a history of heart disease nor kidney disease. Patient may be dehydrated. So labs without acute hematologic or significant metabolic abnormality. Patient with mild transaminitis near his baseline. Troponin not elevated. Patient alcohol level elevated however downtrended. Patient was given fluids, thiamine and folic acid. Urinalysis without acute abnormalities no evidence of infection. Drug screen negative. 18:00p On road test, patient is unsteady. Plan to repeat blood alcohol and reassess. Patient signed out to Dr. Ramsey pending final disposition. Patient data External records reviewed:: [facility] previous records and EMS form Clinical information provided by:: patient and EMS Social determinants that could affect healthcare access:: housing Patient has the following chronic illnesses:: Walking instability How is presenting disease/condition affected by chronic disease/condition?: exacerbated by Evaluation data The following diagnostics were reviewed and interpreted by me:: lab results, radiology exam(s) and EKG tracing(s) Lab and/or radiology exams considered but not ordered:: None Interpretation Summary: See [facility] Medications / Prescriptions Medications or Prescriptions considered but not ordered:: None Medication administrations:: Medication Administration History Discontinued Medications Folic Acid (Folic Acid 1 Mg Tablet) 1 mg PO X1 ONE Stop: 06/22/25 12:20 Last Admin: 06/22/25 13:44 Dose: 1 mg Documented By: VG Lactated Ringer's (Lactated Ringers) 1,000 mls @ 999 mls/hr IV .Q1H1M ONE Stop: 06/22/25 10:33 Last Infusion: 06/22/25 12:07 Dose: Infused Documented By: Admin: 06/22/25 09:48 Dose: 999 mls/hr Documented By: DO Thiamine HCl 100 mg/ Sodium (Chloride) 101 mls @ 202 mls/hr IV X1 ONE Stop: 06/22/25 12:48 Last Admin: 06/22/25 13:36 Dose: Not Given Documented By: VG Non-Admin Reason: Discontinued Nitroglycerin (Nitroglycerin Oint 2% 1 Inch Packet) 0.5 inch TOP X1 ONE Stop: 06/22/25 20:45 Last Admin: 06/22/25 22:23 Dose: Not Given Documented By: CVL Non-Admin Reason: Cancelled by Provider Thiamine HCl (Thiamine Inj 100 Mg/Ml Vial 2 Ml) 100 mg IVP X1 ONE Stop: 06/22/25 12:31 Last Admin: 06/22/25 13:44 Dose: 100 mg Documented By: VG See above Consultations Consultation(s) initiated? (list below): No Diagnosis Weakness Differential Diagnosis: other (See MDM ) Most likely diagnosis given after review of the tests above:: Alcohol intoxication Admission Indicated Admission indicated?: not indicated Explain why admission is indicated or not indicated:: Signed out to Dr. Ramsey Admission Request Was there a request for admission?: No Disposition Plan Disposition Plan: other (specify) (Signed out to Dr. Ramsey) Discharge Plan Prescriptions/Referrals Prescriptions/Med Rec: No Action No Known Home Medications Referrals: Mathew Garcia MD [Primary Care Provider, Family Practice] - In 1 week Problem List Clinical Impression: Unsteady gait, Homeless, Alcohol use Patient/Caregiver Discharge Instructions Print Language: Yoruba
[2025-06-22] MEDS: RINGERS LACTATED 1000 ML 1,000 ML 999 ML IV (09:48)
[2025-06-22 09:58] LABS: Basophils # (Auto) 0.0 Thou/mm3 (0.0-0.2); Basophils % (Auto) 1 % (0-2.5); Eosinophils # (Auto) 0.2 Thou/mm3 (0.0-0.5); Eosinophils % (Auto) 2 % (0-10); Hematocrit 44.8 % (41.0-53.0); Hemoglobin 14.9 g/dL (13.5-16.0); Immature Granulocytes Auto 0.02 Thou/mm3 (0.00-0.00); Lymphocytes # (Auto) 1.2 Thou/mm3 (1.0-4.8); Lymphocytes % (Auto) 18 % (10-50); Mean Corpuscular HGB Conc 33.3 g/dl (31.0-37.0); Mean Corpuscular Hemoglobin 30.7 pg (25.0-35.0); Mean Corpuscular Volume 92 fL (80-100); Monocytes # (Auto) 0.7 Thou/mm3 (0.0-0.8); Monocytes % (Auto) 10 % (0-12); Neutrophils # (Auto) 4.8 Thou/mm3 (1.8-7.7); Neutrophils % (Auto) 69 % (37-80); Nucleated Red Blood Cell # 0.00 Thou/mm3 (0.00-0.00); Nucleated Red Blood Cell % 0 /100 WBC (0); Platelet Count 204 Thou/mm3 (140-440); RDW Standard Deviation 46.2 fL (35.1-43.9); Red Blood Count 4.86 Miln/mm3 (4.50-5.90); White Blood Count 6.9 Thou/mm3 (3.8-10.6)
[2025-06-22 10:16] LABS: Alanine Aminotransferase 83 U/L (10-49); Albumin, Serum 4.2 gm/dL (3.4-4.8); Albumin/Globulin Ratio 1.8 (1.2-2.2); Alcohol, Blood Medical 192.7 mg/dL (0-10.0); Alkaline Phosphatase 92 U/L (46-116); Anion Gap 14 (7-16); Aspartate Amino Transferase 89 U/L (0-34); BUN/Creatinine Ratio 8 Ratio (12-20); Bilirubin,Total 0.5 mg/dL (0.3-1.2); Blood Urea Nitrogen 9 mg/dL (9-23); Calcium 9.0 mg/dL (8.3-10.6); Calcium (Corrected) 9.0 mg/dL (8.5-10.1); Carbon Dioxide 25.9 mMol/L (20.0-31.0); Chloride 100 mMol/L (98-107); Creatinine (Component) 1.1 mg/dL (0.6-1.3); Globulin 2.4 gm/dL (2.3-3.5); Glucose 97 mg/dL (74-106); Osmolality,Calculated 278 (275-295); Potassium 4.3 mMol/L (3.4-5.1); Sodium 140 mMol/L (136-145); Total Protein 6.6 gm/dL (5.7-8.2); Troponin I < 0.020 ng/mL (0.0-0.045); eGFR > 60 See Note
--- NOTE | 2025-06-22 11:45 | PC.NURSE ---
PT DENIES ALCOHOL CONSUMPTION TODAY. STATES HE LAST DRANK 3 DAYS AGO. DENIES DAILY DRINKING.
[2025-06-22 12:06] LABS: Collection Type, Urine Clean Catch
[2025-06-22 12:11] LABS: Bilirubin,Urine Negative (Negative); Blood,Urine Negative (Negative); Clarity,Urine Clear (Clear/Hazy); Color,Urine Lt-Yellow (Lt Yel-Yel); Culture Indicated,Urine Not Indicated; Glucose, Urine Negative (Negative); Ketones,Urine Negative (Negative); Leukocyte Esterase,Urine Negative (Negative); Nitrite,Urine Negative (Negative); PH,Urine 5.5 (5.0-7.0); Protein,Urine Negative (Neg - Trace); RBC,Urine 1 /hpf (0-3); Specific Gravity,Urine 1.008 (1.001-1.035); Squamous Epithelial Cell,Urine < 1 /hpf (0-5); Urobilinogen,Urine Negative mg/dL (0.0-1.0); WBC,Urine < 1 /hpf (0-5)
[2025-06-22 12:19] LABS: Amphetamine/Methamp Scrn,U Negative (Negative); Barbiturate Screen,Urine Negative (Negative); Benzodiazepines Screen,Urine Negative (Negative); Benzoylecgonine Screen, Ur Negative (Negative); Fentanyl Screen,Urine Negative (Negative); Opiate Screen,Urine Negative (Negative); THC Screen,Urine Negative (Negative)
[2025-06-22] MEDS: THIAMINE INJ 100 MG/ML VIAL 2 ML IVP (13:44)
[2025-06-22] MEDS: FOLIC ACID 1 MG TABLET PO (13:44)
--- NOTE | 2025-06-22 14:00 | PC.NURSE ---
PT GIVEN SANDWICH AND FLUIDS.
--- NOTE | 2025-06-22 14:30 | PC.NURSE ---
PT ASSISTED TO THE BATHROOM ON WHEELCHAIR. TOLERATED WELL. PT HAD A BM.
--- NOTE | 2025-06-22 18:00 | PC.NURSE ---
pt ambulated down the sheets, assisted by GROUNDS PERSON. seen by provider. pt tolerated ambulation well.
[2025-06-22 18:32] LABS: Alcohol, Blood Medical 22.4 mg/dL (0-10.0)
--- NOTE | 2025-06-22 18:32 | EDNOTE_ITS ---
Emergency Room Addendum <Lisa Womack - Last Filed: 06/23/25 06:34> Addendum Narrative: 1800: Care assumed from Dr. Ma (emergency physician). Past medical, surgical, social and family history reviewed. Vitals and home medications reviewed. Results and treatment plan discussed. I will assume the care of the patient at this time and will follow the patient, pending blood/alcohol stabilization. The following addendum documentation note is intended to reflect any pending information, findings, or radiology results not included in the patient?s initial chart by the previous shift scribe. Assumed care of elderly male with reported history of alcoholism and is c urrently homeless awaiting housing with reported unsteady gait. Patient underwent extensive work-up including CBC, serum chemistries, CT Brain, which demonstrated left frontal encephalomalacia, otherwise, unremarkable. Alcohol level of 22 mg/dL. Patient observed extended period of time and attempts to ambulate, demonstrated wide-based gait. Patient is ataxic with disequilibrium. At risk for fall. CT of the brain with no acute midline shift. May require MRI and PT evaluation in the morning. Will hold for MRI. Will consult PT. 06:00 - Care assumed by Dr. Ma (emergency physician). Past medical, surgical, social and family history reviewed. Vitals and home medications reviewed. Results and treatment plan discussed. They will assume the care of the patient at this time and will follow the patient, pending MRI and PT/OT if necessary. <Tc Ramsey DO - Last Filed: 06/23/25 06:37> Addendum Narrative: 1800: Care assumed from Dr. Merrill (emergency physician). Past medical, surgical, social and family history reviewed. Vitals and home medications reviewed. Results and treatment plan discussed. I will assume the care of the patient at this time and will follow the patient, pending blood/alcohol stabilization. The following addendum documentation note is intended to reflect any pending information, findings, or radiology results not included in the patient?s initial chart by the previous shift scribe. Assumed care of elderly male with reported history of alcoholism and is currently homeless awaiting housing with reported unsteady gait. Patient underwent extensive work-up including CBC, serum chemistries, CT Brain, which demonstrated left frontal encephalomalacia, otherwise, unremarkable. Alcohol level of 22 mg/dL. Patient observed extended period of time and attempts to ambulate, demonstrated wide-based gait. Patient is ataxic with disequilibrium. At risk for fall. CT of the brain with no acute midline shift without ventriculomegaly. May require MRI and PT evaluation in the morning. Will hold for MRI. 06:00 - Care assumed by Dr. Merrill (emergency physician). Past medical, surgical, social and family history reviewed. Vitals and home medications reviewed. Results and treatment plan discussed. They will assume the care of the patient at this time and will follow the patient, pending MRI and PT/OT if necessary.
--- NOTE | 2025-06-23 | XR_ITS ---
Examination: MRI brain without intravenous contrast. Date and time of exam: June 23, T2 thousand 25, 0907 hours INDICATIONS: Ataxia, unsteady gait today Technique: Multiple axial and sagittal images of the brain obtained. Siemens high-resolution 1.5 Heather short bore scanners utilized. Sagittal sections, T1-weighted, TR 500, TE 14, are performed. Axial sections proton-density and T2-weighted have been obtained. Inversion recovery axial images, TR 9, 260, TE 111, TI 2500. Diffusion weighted images, axial sections, TR 4800, TE 128, B value 1000 Axial sections, ADC map, TR 4800, TE 128 Findings: Enlargement of the sella turcica is not present. The optic chiasm and infundibular are not remarkable. Prepontine and interpeduncular cisterns are not enlarged. There is no localized enlargement of the medulla or lamine. Fourth ventricle and cerebellar tonsils appear normal in position. No subacute area of hemorrhage density is seen. Mass in the cerebellopontine angle region is not evident. Globes symmetrical. Orbital musculature including medial lateral rectus muscles do not exhibit abnormality. Diffusion-weighted images demonstrate no focus of restricted diffusion. Increased white matter signal prominent, old infarct left frontal lobe left temporal lobe Mass effect upon the ventricular system is not identified. 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
[2025-06-23 00:09] VITALS: BP 145/68; PULSE 92; RESP 18; TEMP 36.9; O2SAT 98
[2025-06-23 03:52] VITALS: BP 143/83; PULSE 93; RESP 18; TEMP 36.7; O2SAT 96
[2025-06-23 06:20] VITALS: BP 128/75; PULSE 60; RESP 16; TEMP 36.6; O2SAT 96
[2025-06-23 07:30] VITALS: BP 122/69; PULSE 97; RESP 18; TEMP 36.6; O2SAT 96
--- NOTE | 2025-06-23 07:53 | PD.EDADDENDU ---
Emergency Room Addendum <Cindi Ma MD - Last Filed: 07/13/25 19:28> Addendum Narrative: Patient resting comfortably. Trialed ambulation yesterday, however, continue to be unsteady in his ambulation. Alcohol down trended. GCS15, NAD. Strong in all 4 extremities, no saddle anesthesia, no urinary or bowel incontinence, no tenderness to palpation along his entire spine. Patient denies any fever, weight loss, history of IV drug use. Less likely spinal cord entrapment at this time. MRI brain ordered overnight. Patient is pending PT OT today. Physical therapy has evaluated the patient in the ED and recommend patient walks with a walker. loft worker head aware of physicial therapy recommendations. Report they are unable to place the patient in a care home from the ED due to insurance. At this time and per PT recommendations, the patient would require a walker for home. Walker ordered for patient in the ED. Will be dc to home with close return precautions and follow up with PCP. Patient is able to ambulate safely. He is HD stable NAD. In agreement with treatment plan <Tori Lloyd - Last Filed: 06/23/25 14:22> Addendum Narrative: Patient resting comfortably. Trialed ambulation yesterday, however, continue to be unsteady in his ambulation. Alcohol down trended. GCS15, NAD. Strong in all 4 extremities, no saddle anesthesia, no urinary or bowel incontinence, no tenderness to palpation along his entire spine. Patient denies any fever, weight loss, history of IV drug use. Less likely spinal cord entrapment at this time. MRI brain ordered overnight. Patient is pending PT OT today. Physical therapy has evaluated the patient in the ED and recommend patient walks with a walker. loft worker head aware of physicial therapy recommendations. Report they are unable to place the patient in a care home from the ED due to insurance. At this time and per PT recommendations, the patient would require a walker for home.
--- NOTE | 2025-06-23 10:25 | PC.CC ---
Addendum entered by Petty Corrigan 06/23/25 11:07: 1105-Due to pts straight medicare, pt will require a 3 midnight stay admitted to the hosptial. However, after ER provider reviewed his chart, pt does not meet criteria to be admitted. ASW will submit to [employer] for a walker, as PT boyal recommends a walker to support his gait. Original Note: 1025-Pt is requesting SNF placement due to inability to walk with a stable gait. ASW will submit on [facility] for SNF placement.
--- NOTE | 2025-06-23 10:45 | PC.PT ---
PT eval complete. Please see note for further detail.
[2025-06-23 14:29] VITALS: BP 147/86; PULSE 77; RESP 17; TEMP 36.4; O2SAT 97
[2025-06-23 15:25] VITALS: BP 148/88; PULSE 88; RESP 16; TEMP 36.6; O2SAT 99
== END 2025-06-23 15:44 | disposition home or self-care (01) ==
PROVIDERS: Emergency Provider Emergency Medicine; PCP Family Medicine
DX: F10.90 Alcohol use, unspecified, uncomplicated (principal); Y90.6 Blood alcohol level of 120-199 mg/100 ml; R26.81 Unsteadiness on feet; M54.2 Cervicalgia; R51.9 Headache, unspecified; Z59.00 Homelessness unspecified; Z91.81 History of falling
CPT/HCPCS: 36415; 70450; 70551; 72125; 80053; 80307; 80320; 81001; 84484; 85025; 93005; 96361; 96374; 99284; J3411; J7120; A9270; G0480

== ENCOUNTER 2025-06-29 11:26 | Emergency (ER) | payer MEDICARE, MEDICAID, SELFPAY ==
[2025-06-29 12:01] VITALS: BP 114/66; PULSE 80; RESP 18; TEMP 36.6; O2SAT 97
--- NOTE | 2025-06-29 12:56 | PD.EDADULT ---
ED General RME/HPI General Chief complaint: General Adult/Misc Complain Stated complaint: HOLD Time Seen by Provider: 06/29/25 12:03 Arrival date/time: 06/29/25 11:26 RME / HPI RME / HPI narrative: 79-year-old male here for evaluation of syncopal episode that occurred earlier today. States that he was sitting on the porch when he felt dizzy and ended up passing out. Notes that he has not really passed out before. Does note that he has not had much to eat in the past few days and that he had not had any fluids yet today. Currently just afternoon. Denies any pain or other acute symptoms at this time. No known medical history. Patient is homeless and does have a history of alcohol use with last alcohol intake about a week ago. Denies any drug use. Related Data Home Medications ?Medication ?Instructions ?Recorded ?Confirmed No Known Home Medications 07/02/22 09/10/24 Allergies Allergy/AdvReac Type Severity Reaction Status Date / Time No Known Allergies Allergy Verified 03/10/25 18:11 Review of Systems Review of Systems Systems Reviewed: All systems reviewed, normal except as documented Past Medical History Past Medical History OTHER HISTORY: Positive Blood Transfusions Family History FAMILY HISTORY: Negative Family Cardiac Disorders Social History SMOKING STATUS: Never smoker Past Medical History Comments PMH COMMENT: Homelessness, alcohol use ED Exam Narrative Physical exam: Constitutional: Awake, alert, disheveled, body odor present HEENT: Normocephalic, atraumatic, extraocular movements intact. Neck: Supple CV: Regular rate and rhythm, no murmurs/rubs/gallops Lungs: Clear to auscultation BL, no respiratory distress. Abd: Soft, NT, ND, no HSM noted to palpation Extremities: No deformities, no edema noted Neuro: AAOx3, no acute neuro deficit noted. Skin: Warm, dry, intact Course Course Course Narrative: 1800h: Patient is pending placement by social work. Signed out to Dr. Joy pending placement. Labs revealing modestly elevated creatinine at 1.7 and elevated blood glucose at 222. A1c was added and will be pending. Quality Measures none Orders Category Date Time Status Consult Account Executive NOW Care 06/29/25 12:53 Active A1C [Glycohemoglobin w (eAG)] Stat Lab 06/29/25 17:43 Ordered CBC Stat Lab 06/29/25 13:24 Completed CMP [Comprehensive Metabolic Panel] Stat Lab 06/29/25 13:24 Completed Magnesium Stat Lab 06/29/25 13:24 Completed Urinalysis Stat Lab 06/29/25 14:45 Completed Vital Signs Vital signs: Vital Signs Temperature 97.8 F 06/29/25 12:01 Pulse Rate 80 06/29/25 12:01 Respiratory Rate 18 06/29/25 12:01 Blood Pressure 114/66 06/29/25 12:01 Pulse Oximetry (%) 97 06/29/25 12:01 Oxygen Delivery Method Room Air 06/29/25 12:01 Pulse ox is 97% on room air which is adequate. Discharge Plan Prescriptions/Referrals Prescriptions/Med Rec: No Action No Known Home Medications Referrals: No Primary/Family,Physician [Primary Care Provider] - In 1 week Problem List Clinical Impression: Homeless, Alcohol use, Hyperglycemia, Renal insufficiency Patient/Caregiver Discharge Instructions Print Language: Bangladeshi MDM Narrative MDM hospital course (for use when minimal MDM required): Tori Cameron am scribing for and in the presence of Dr. Lange. Clinical Information Provided by: patient and law enforcement Medical Records reviewed [facility] Meds/Rx considered, not ordered None Labs/Rad/Tests considered, not ordered None Chronic Illness/Social Conditions which may negatively complicate care or outcome(s)-explain: Homeless EKG EKG not done Labs Labs: see narrative above Imaging Imaging interpretation: none Medication Administration(s) none Diagnosis Diagnoses ruled out and/or further discussions: Homelessness, Hyperglycemia, Renal insufficiency
[2025-06-29 13:42] LABS: Basophils # (Auto) 0.0 Thou/mm3 (0.0-0.2); Basophils % (Auto) 1 % (0-2.5); Eosinophils # (Auto) 0.1 Thou/mm3 (0.0-0.5); Eosinophils % (Auto) 1 % (0-10); Hematocrit 45.7 % (41.0-53.0); Hemoglobin 14.7 g/dL (13.5-16.0); Immature Granulocytes Auto 0.01 Thou/mm3 (0.00-0.00); Lymphocytes # (Auto) 1.2 Thou/mm3 (1.0-4.8); Lymphocytes % (Auto) 19 % (10-50); Mean Corpuscular HGB Conc 32.2 g/dl (31.0-37.0); Mean Corpuscular Hemoglobin 30.6 pg (25.0-35.0); Mean Corpuscular Volume 95 fL (80-100); Monocytes # (Auto) 0.5 Thou/mm3 (0.0-0.8); Monocytes % (Auto) 9 % (0-12); Neutrophils # (Auto) 4.3 Thou/mm3 (1.8-7.7); Neutrophils % (Auto) 71 % (37-80); Nucleated Red Blood Cell # 0.00 Thou/mm3 (0.00-0.00); Nucleated Red Blood Cell % 0 /100 WBC (0); Platelet Count 180 Thou/mm3 (140-440); RDW Standard Deviation 48.5 fL (35.1-43.9); Red Blood Count 4.81 Miln/mm3 (4.50-5.90); White Blood Count 6.1 Thou/mm3 (3.8-10.6)
[2025-06-29 14:05] LABS: Alanine Aminotransferase 66 U/L (10-49); Albumin, Serum 4.5 gm/dL (3.4-4.8); Albumin/Globulin Ratio 1.7 (1.2-2.2); Alkaline Phosphatase 78 U/L (46-116); Anion Gap 11 (7-16); Aspartate Amino Transferase 79 U/L (0-34); BUN/Creatinine Ratio 11 Ratio (12-20); Bilirubin,Total 0.9 mg/dL (0.3-1.2); Blood Urea Nitrogen 18 mg/dL (9-23); Calcium 9.5 mg/dL (8.3-10.6); Calcium (Corrected) 9.5 mg/dL (8.5-10.1); Carbon Dioxide 28.1 mMol/L (20.0-31.0); Chloride 103 mMol/L (98-107); Creatinine (Component) 1.7 mg/dL (0.6-1.3); Globulin 2.7 gm/dL (2.3-3.5); Glucose 222 mg/dL (74-106); Magnesium 2.1 mg/dL (1.6-2.6); Osmolality,Calculated 292 (275-295); Potassium 4.9 mMol/L (3.4-5.1); Sodium 142 mMol/L (136-145); Total Protein 7.2 gm/dL (5.7-8.2); eGFR 40 See Note
[2025-06-29 14:55] LABS: Collection Type, Urine Clean Catch; Squamous Epithelial Cell,Urine 0 /hpf (0-5)
[2025-06-29 15:15] LABS: Bacteria,Urine Rare; Bilirubin,Urine 1+ (Negative); Blood,Urine Negative (Negative); Clarity,Urine Clear (Clear/Hazy); Color,Urine Yellow (Lt Yel-Yel); Glucose, Urine Negative (Negative); Ketones,Urine 1+ (Negative); Leukocyte Esterase,Urine Negative (Negative); Nitrite,Urine Negative (Negative); PH,Urine 5.5 (5.0-7.0); Protein,Urine Trace (Neg - Trace); RBC,Urine 3 /hpf (0-3); Specific Gravity,Urine 1.032 (1.001-1.035); Urobilinogen,Urine 3.0 mg/dL (0.0-1.0); WBC,Urine 3 /hpf (0-5)
[2025-06-29 18:07] LABS: Glucose Estimated Average 100 mg/dL (80-131); Hemoglobin A1C 5.1 % Hgb (4.8-6.0)
[2025-06-29 18:08] VITALS: BP 129/72; PULSE 74; RESP 16; TEMP 36.7; O2SAT 98
--- NOTE | 2025-06-29 18:11 | PD.EDADDENDU ---
Emergency Room Addendum Addendum Narrative: 1800: Care assumed from Dr. Lange, the previous shift emergency physician. Past medical, surgical, social and family history reviewed. Vitals and home medications reviewed. Results and treatment plan discussed. I will assume the care of the patient at this time and will follow the patient, pending placement. Please refer to the emergency department record for history and examination from initial visit. The following addendum documentation note is intended to reflect any pending information, findings, or radiology results not included in the patient?s initial chart. Patient is resting comfortably in no acute distress. Patient remained stable while under my care. 0600: Care signed out to Dr. Lange (emergency physician). Past medical, surgical, social and family history reviewed. Vitals and home medications reviewed. Results and treatment plan discussed. They will assume the care of the patient at this time and will follow the patient, pending placement.
[2025-06-29 22:39] VITALS: BP 141/86; PULSE 83; RESP 18; TEMP 36.8; O2SAT 98
[2025-06-30 01:55] VITALS: BP 136/81; PULSE 67; RESP 19; TEMP 36.6; O2SAT 97
--- NOTE | 2025-06-30 06:19 | EDNOTE_ITS ---
Emergency Room Addendum Addendum Narrative: 0600h: Received signout from Dr. Joy. I will assume the care of the patient at this time and will follow the patient, pending placement. Please refer to the emergency department record for history and examination from initial visit. The following addendum documentation note is intended to reflect any pending information, findings, or radiology results not included in the patient?s initial chart. 0920h: java web services developer has been unable to find placement at [facility] for patient and there is no indication for inpatient admission at this time. java web services developer will be able to refer him to local halfway where he will be able to stay for up to 90 days. Patient will be discharged at this time. Diagnosis: Homelessness Disposition: Discharge
--- NOTE | 2025-06-30 06:32 | PC.NURSE ---
HAILEE TATUM LET PT TOOK A SHOWER.
--- NOTE | 2025-06-30 07:17 | PC.NURSE ---
Pt alert gcs 15, denies any pain or discomfort at this time. Meal tray ordered, spoke w/SW who will come evaluate pt.
--- NOTE | 2025-06-30 08:02 | PC.SS ---
This RN UTILIZATION MANAGEMENT UM manager internship made bedside contact with 79 year old patient Ayden Tejada. Patient is alert and oriented with clear speech able to state what brought him here. He states he had a fall and was brought in via ambulance. Patient was able to confirm he does not have a physical address but does stay at the [facility]. Patient was able to verify emergency contact Olu Spangler/sister and brother in law Olu both with same name. He was able to verify her address and contact information [facility], [place]. . Patient states he does not have a PCP and said he cannot remember the last time he was seen by a doctor, he does recall last time seen was at [facility] but does does not recall the provider name. resident states he does not have a preferred pharmacy and denied taking any medication at this time. Patient denies using any DME states he could benefit from the use of a standing cane, patient denies having a rollater walker and said he does not need it. Patient does not have advance directive in place nor is he conserved, he states if his heart was to stop he would not want to be resuscitated. Patient said he would be willing to go to go to SNF as he may benefit from the services. He does not have preferred facility but would like to stay in [place] centrally located.
[2025-06-30 08:26] VITALS: BP 130/78; PULSE 77; RESP 16; TEMP 36.7; O2SAT 98
--- NOTE | 2025-06-30 10:39 | PC.NURSE ---
Spoke w/SW as pt appears to need walker, per SW pt received one last month, insurance will not cover another one at this time. This rn booked ride through [employer], provided food and drinks, has accurate clothing for weather, see homeless discharge.
--- NOTE | 2025-06-30 11:09 | PC.CC ---
0800-ASW/CYBER INCIDENT HANDLER Bottle Washer Machine Ethel Hopkins met with pt at bedside. ASW allowed CYBER INCIDENT HANDL[employer] Bott[employer] Washer Machine Ethel Hopkins to conduct the MH assessment with pt. CYBER INCIDENT HANDLER Bottle Washer Machine Ethel Ritchiet met with patient [id number] to complete assessment. ASW introduced self, role, and reason for assessment. ASW disclosed limits of confidentiality as well. Patient appeared alert and oriented to self, place, and situation. Patient was pleasant; his mood appeared happy; his behavior appeared at baseline and was coherent/alert Xs3. Patient?s thought process was linear and organized. No signs of delusions, paranoid or V/h. Pt stated that yesterday, he was at a local park when he fell down and hurt himself. Pt reported that he had been drinking and was intoxicated. Pt reported that he was confused at that time due to being drunk. However, someone had called [facility] and he was placed on a 5150 Hold for Gravely Disabled. Pt denies SI/HI, denies self-harm, denies use of illicit controlled substances, but admits to heavy alcohol use. Pt reports he drinks alcohol daily or when he can. Pt denies h/o MH diagnosis. Pt reports he knows where he is at, person, place and time. Pt reports he knows how to obtain food and water, but at times will not ask for it, unless someone reaches out and provides it for him. Pt reports he feels his ability to care for himself is declining. Pt was asked about possible SNF placement he said he would consider it, but wants his freedom at any SNF placement. Pt reports at this time, he will consider SNF in the future, but does not want it at this time. ASW staffed this case with [facility], Director Oneida Arvizu, and it was determined that the best plan for this pt would be to rescinded the 5150 Hold Gravely Disabled and d/c pt with community resources. ASW spoke with ER provider and she agreed as well. Assigned RN is aware.
== END 2025-06-30 10:41 | disposition home or self-care (01) ==
PROVIDERS: Emergency Provider Family Medicine
DX: N28.9 Disorder of kidney and ureter, unspecified (principal); R73.9 Hyperglycemia, unspecified; Z59.00 Homelessness unspecified; F10.90 Alcohol use, unspecified, uncomplicated; Z75.1 Person awaiting admission to adequate facility elsewhere
CPT/HCPCS: 36415; 80053; 81001; 83036; 83735; 85025; 99283

== ENCOUNTER 2025-07-11 07:08 | Emergency (ER) | payer MEDICARE, MEDICAID, SELFPAY ==
[2025-07-11] VITALS (15 sets, daily range): BP systolic 106–159; BP diastolic 53–89; PULSE 60–97; RESP 6–71; TEMP 36.3–36.9; O2SAT 96–100; BMI 20.7
--- NOTE | 2025-07-11 | XR_ITS ---
Examination: MRI brain without intravenous contrast. Date and time of exam: July 11, 2025, 1357 hours, comparison 06/23/2025 INDICATIONS: Onset altered mental status weakness beginning 5 days ago Technique: Multiple axial and sagittal images of the brain obtained. Siemens high-resolution 1.5 Heather short bore scanners utilized. Sagittal sections, T1-weighted, TR 500, TE 14, are performed. Axial sections proton-density and T2-weighted have been obtained. Inversion recovery axial images, TR 9, 260, TE 111, TI 2500. Diffusion weighted images, axial sections, TR 4800, TE 128, B value 1000 Axial sections, ADC map, TR 4800, TE 128 Findings: Enlargement of the sella turcica is not present. The optic chiasm and infundibular are not remarkable. Prepontine and interpeduncular cisterns are not enlarged. There is no localized enlargement of the medulla or lamine. Fourth ventricle and cerebellar tonsils appear normal in position. No subacute area of hemorrhage density is seen. Mass in the cerebellopontine angle region is not evident. Globes symmetrical. Orbital musculature including medial lateral rectus muscles do not exhibit abnormality. Diffusion-weighted images demonstrate no focus of restricted diffusion. 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 Impression: Negative for acute hemorrhage mass effect or midline shift No acute infarct
--- NOTE | 2025-07-11 07:29 | EKG_ITS ---
[facility] Test Date: 2025-07-11 Pat Name: CARLA MCLAUGHLIN Department: Room: - Gender: Male Industrial Staff Nurse: : 1945 Requested By: Checo Bertrand Order Number: [id number] Reading MD: Checo Bertrand Measurements Intervals [place] Rate: 96 P: 70 PA: 165 QRS: 64 QRSD: 90 T: 66 QT: 346 QTc: 439 Interpretive Statements SINUS RHYTHM WITH OCCASIONAL VENTRICULAR PREMATURE COMPLEXES NONSPECIFIC T-WAVE ABNORMALITY Compared to ECG 06/22/2025 09:39:55 Ventricular premature complex(es) now present T-wave abnormality now present /store/S0/[id number]/ecg/[id number].pdf
--- NOTE | 2025-07-11 07:30 | PD.EDRME ---
Rapid Medical Screening Exam RME Arrival date/time: 07/11/25 07:08 79-year-old male with no known medical history presents to the emergency room with a chief complaint of dizziness x 5 days I have greeted and performed a focused initial assessment of this patient. A comprehensive ED assessment and evaluation of the patient, analysis of all test results, and completion of the medical decision making process will be conducted by additional ED providers. Chief Complaint: Dizziness Time Seen by Provider: 07/11/25 07:09 Vital signs: Vital Signs Temperature 97.4 F 07/11/25 07:21 Pulse Rate 90 07/11/25 07:21 Respiratory Rate 18 07/11/25 07:21 Blood Pressure 159/76 H 07/11/25 07:21 Pulse Oximetry (%) 97 07/11/25 07:21 Oxygen Delivery Method Room Air 07/11/25 07:21 Vital signs reviewed by provider: Yes
[2025-07-11 08:08] LABS: Collection Type, Urine Clean Catch
[2025-07-11 08:23] LABS: Alanine Aminotransferase 71 U/L (10-49); Albumin, Serum 4.2 gm/dL (3.4-4.8); Albumin/Globulin Ratio 1.5 (1.2-2.2); Alkaline Phosphatase 78 U/L (46-116); Anion Gap 12 (7-16); Aspartate Amino Transferase 88 U/L (0-34); BUN/Creatinine Ratio 5 Ratio (12-20); Bilirubin,Total 0.6 mg/dL (0.3-1.2); Blood Urea Nitrogen 8 mg/dL (9-23); Calcium 9.3 mg/dL (8.3-10.6); Calcium (Corrected) 9.3 mg/dL (8.5-10.1); Carbon Dioxide 24.7 mMol/L (20.0-31.0); Chloride 101 mMol/L (98-107); Creatinine (Component) 1.6 mg/dL (0.6-1.3); Estimated Creatinine Clearance 33.1 mL/min (>60); Globulin 2.8 gm/dL (2.3-3.5); Glucose 158 mg/dL (74-106); Magnesium 2.2 mg/dL (1.6-2.6); Osmolality,Calculated 276 (275-295); Potassium 5.0 mMol/L (3.4-5.1); Sodium 138 mMol/L (136-145); Total Protein 7.0 gm/dL (5.7-8.2); Troponin I < 0.020 ng/mL (0.0-0.045); eGFR 43 See Note
[2025-07-11 08:24] LABS: Amphetamine/Methamp Scrn,U Negative (Negative); Barbiturate Screen,Urine Negative (Negative); Benzodiazepines Screen,Urine Negative (Negative); Benzoylecgonine Screen, Ur Negative (Negative); Fentanyl Screen,Urine Negative (Negative); Opiate Screen,Urine Negative (Negative); THC Screen,Urine Negative (Negative)
[2025-07-11 08:31] LABS: Bilirubin,Urine Negative (Negative); Blood,Urine Negative (Negative); Clarity,Urine Clear (Clear/Hazy); Color,Urine Lt-Yellow (Lt Yel-Yel); Culture Indicated,Urine Not Indicated; Glucose, Urine Negative (Negative); Hyaline Casts,Urine 1 /hpf (0-1); Ketones,Urine Negative (Negative); Leukocyte Esterase,Urine Negative (Negative); Nitrite,Urine Negative (Negative); PH,Urine 6.0 (5.0-7.0); Protein,Urine Negative (Neg - Trace); RBC,Urine < 1 /hpf (0-3); Specific Gravity,Urine 1.009 (1.001-1.035); Squamous Epithelial Cell,Urine < 1 /hpf (0-5); Urobilinogen,Urine Negative mg/dL (0.0-1.0); WBC,Urine < 1 /hpf (0-5)
[2025-07-11 08:41] LABS: B-Type Natriuretic Peptide 87 pg/mL (0-100)
[2025-07-11 08:50] LABS: INR 1.1 (0.9-1.3); Partial Thromboplastin Time 22.7 Seconds (22.0-36.0); Prothrombin Time 11.3 Seconds (9.0-12.2)
--- NOTE | 2025-07-11 09:14 | PC.NURSE ---
PT HERE WITH C/O DIZZINESS, WEAKNESS, AND TROUBLE WALKING FOR 5 DAYS
[2025-07-11 09:24] LABS: Basophils # (Auto) 0.0 Thou/mm3 (0.0-0.2); Basophils % (Auto) 1 % (0-2.5); Eosinophils # (Auto) 0.1 Thou/mm3 (0.0-0.5); Eosinophils % (Auto) 1 % (0-10); Hematocrit 44.9 % (41.0-53.0); Hemoglobin 14.3 g/dL (13.5-16.0); Immature Granulocytes Auto 0.02 Thou/mm3 (0.00-0.00); Lymphocytes # (Auto) 1.1 Thou/mm3 (1.0-4.8); Lymphocytes % (Auto) 18 % (10-50); Mean Corpuscular HGB Conc 31.8 g/dl (31.0-37.0); Mean Corpuscular Hemoglobin 30.1 pg (25.0-35.0); Mean Corpuscular Volume 95 fL (80-100); Monocytes # (Auto) 0.7 Thou/mm3 (0.0-0.8); Monocytes % (Auto) 11 % (0-12); Neutrophils # (Auto) 4.0 Thou/mm3 (1.8-7.7); Neutrophils % (Auto) 69 % (37-80); Nucleated Red Blood Cell # 0.00 Thou/mm3 (0.00-0.00); Nucleated Red Blood Cell % 0 /100 WBC (0); RDW Standard Deviation 50.2 fL (35.1-43.9); Red Blood Count 4.75 Miln/mm3 (4.50-5.90); White Blood Count 5.8 Thou/mm3 (3.8-10.6)
[2025-07-11 09:51] LABS: Platelet Count 215 Thou/mm3 (140-440)
--- NOTE | 2025-07-11 11:23 | PD.EDDIZZY ---
ED Dizzyness RME/HPI General Chief Complaint: Dizziness Stated Complaint: DIZZY X 5 DAYS, WEAK, DIFF AMB Time Seen by Provider: 07/11/25 07:09 Arrival date/time: 07/11/25 07:08 Limitations: no limitations RME / HPI RME / HPI Narrative: 07/11/25 07:08 79-year-old male with no known medical history presents to the emergency room with a chief complaint of dizziness x 5 days I have greeted and performed a focused initial assessment of this patient. A comprehensive ED assessment and evaluation of the patient, analysis of all test results, and completion of the medical decision making process will be conducted by additional ED providers. DR. JOY MAIN ED EVALUATION 79 year old male who is currently homeless presents to the ED for evaluation of dizziness and global weakness beginning 4 days ago. Accompanied by trouble walking adding my balance is off . Additionally reports he has not had much to eat or drink in the last few days and not sure if that is contributing or exacerbating his symptoms. Reportedly has experienced similar dizziness before though not to this severity. Denies headache, unilateral weakness, head injury, LOC, falls, or injuries. Denies fevers, chills, chest pain, cough, shortness of breath, abdominal pain, n/v/d, or urinary symptoms. Related Data Home Medications ?Medication ?Instructions ?Recorded ?Confirmed No Known Home Medications 07/02/22 09/10/24 Allergies Allergy/AdvReac Type Severity Reaction Status Date / Time No Known Allergies Allergy Verified 07/11/25 07:11 Review of Systems Review of Systems Systems Reviewed: All systems reviewed, normal except as documented Past Medical History Past Medical History OTHER HISTORY: Positive Blood Transfusions Family History FAMILY HISTORY: Negative Family Cardiac Disorders Social History SMOKING STATUS: Never smoker ED Exam General Limitations: Present no limitations General appearance: Present alert and in no apparent distress Head Head exam: Present atraumatic, normocephalic and normal inspection Eye Eye exam: Present normal appearance, PERRL and EOMI ENT ENT exam: Present normal exam, normal oropharynx and mucous membranes moist Neck Neck exam: Present normal inspection, full ROM and trachea midline Chest Chest inspection: Present normal inspection and symmetric chest wall rise Respiratory Respiratory exam: Present normal lung sounds bilaterally Cardiovascular Cardiovascular exam: Present regular rate, normal rhythm and normal heart sounds Abdominal Exam Abdominal exam: Present soft and normal bowel sounds Extremities Exam Extremities exam: Present normal inspection and full ROM Back Exam Back exam: Present normal inspection and full ROM Neurological Exam Neurological exam: Present alert, oriented X3 and CN II-XII intact; Absent motor sensory deficit Psychiatric Psychiatric exam: Present normal affect and normal mood Skin Skin exam: Present warm, dry, intact and normal color Course Quality Measures none Orders Category Date Time Status Consult Occupational Therapy NOW Care 07/11/25 17:48 Active EKG (ED ONLY) *Do not use* NOW Care 07/11/25 07:29 Completed Insert IV NOW Care 07/11/25 12:17 Active MRI Screening NOW Care 07/11/25 11:22 Active MRI Screening NOW Care 07/11/25 11:22 Completed Referral Physical Therapy Stat Cons 07/11/25 17:48 Active Diet Regular Diet 07/11/[address] head/brain wo con Stat Exams 07/11/25 11:22 Completed EKG (ED Only) Stat Exams 07/11/25 07:29 Draft MR head/brain wo con Stat Exams 07/11/25 Completed B-Type Natriuretic Peptide Stat Lab 07/11/25 07:45 Completed CBC Stat Lab 07/11/25 07:45 Completed Comprehensive Metabolic Panel Stat Lab 07/11/25 07:45 Completed Drug Screen,Urine Stat Lab 07/11/25 08:00 Completed Magnesium Stat Lab 07/11/25 07:45 Completed Partial Thromboplastin Time Stat Lab 07/11/25 07:45 Completed Prothrombin Time with INR Stat Lab 07/11/25 07:45 Completed Troponin I Stat Lab 07/11/25 07:45 Completed Troponin I Stat Lab 07/11/25 16:36 Completed Urinalysis, C/S if Indicated Stat Lab 07/11/25 08:00 Completed Sodium Chloride 0.9% 1000 ml [Ns] 1,000 ml Med 07/11/25 11:33 Discontinued IV 999 mls/hr Sodium Chloride 0.9% 1000 ml [Ns] 1,000 ml Med 07/11/25 17:49 Active IV 999 mls/hr Vital Signs Vital signs: Vital Signs Temperature 97.4 F 07/11/25 07:21 Pulse Rate 90 07/11/25 07:21 Respiratory Rate 18 07/11/25 07:21 Blood Pressure 159/76 H 07/11/25 07:21 Pulse Oximetry (%) 97 07/11/25 07:21 Oxygen Delivery Method Room Air 07/11/25 07:21 Pulse ox is 97% on room air which is adequate. Dizziness MDM Narrative MDM Narrative:: Tori Cameron, drake scribing for and in the presence of Dr. Joy. 79-year-old male with above history presenting to the emergency department with dizziness. The patient states that he is been dizzy and feels off balance for the last 3 days. He also Is homeless and has had decreased p.o. intake over the last 3 to 4 days. Differential diagnosis includes dehydration, electrolyte abnormality, TIA, stroke, UTI, but otherwise the patient has a normal neuroexam here to include finger-nose, normal drift, negative skew test, No aphasia or dysarthria and otherwise normal motor and sensory exam. Normal finger-nose. The patient's white count is normal at 5 with a hemoglobin normal 14/49. No thrombocytopenia. INR and coags are normal. Otherwise BUN/creatinine are 8/1.6 and troponin is negative. Urinalysis does not show UTI. Drug screen is negative. Head CT is negative for stroke. While in the emergency department the patient was treated with IV fluids. MRI is obtained and negative. Will check trial to see if the patient can walk after IV fluids. Will see if the patient has a place where he can go tonight and feel safe for discharge. EKG shows no atrial fibrillation. 1745p: Ambulatory trial performed. Nursing staff report the patient was unable to ambulate on own without holding on to the wall or staff. Plan to have PT evaluate the patient. 1800p: Patient signed out to Dr. Rucker pending PT/OT evaluation versus stroke work-up and final disposition. Patient data External records reviewed:: [facility] previous records Clinical information provided by:: patient Social determinants that could affect healthcare access:: housing (pt is homeless ) Patient has the following chronic illnesses:: None reported How is presenting disease/condition affected by chronic disease/condition?: no chronic disease Evaluation data The following diagnostics were reviewed and interpreted by me:: lab results, radiology exam(s) and EKG tracing(s) (EKG @ 07:33 AM. Sinus rhythm with occasional PVCs, rate 96, MA interval 165ms, QTc 439ms, no STEMI. ) Lab and/or radiology exams considered but not ordered:: None Interpretation Summary: Ordering Physician: Cindi Joy MD Date of Service: 07/11/25 Procedure(s): MR head/brain wo con Accession Number(s): [id number] cc: Alli Beckman MD; Cindi Joy MD; Mathew Garcia MD~ Examination: MRI brain without intravenous contrast. Date and time of exam: July 11, 2025, 1357 hours, comparison 06/23/2025 INDICATIONS: Onset altered mental status weakness beginning 5 days ago Technique: Multiple axial and sagittal images of the brain obtained. Siemens high-resolution 1.5 Heather short bore scanners utilized. Sagittal sections, T1-weighted, TR 500, TE 14, are performed. Axial sections proton-density and T2-weighted have been obtained. Inversion recovery axial images, TR 9, 260, TE 111, TI 2500. Diffusion weighted images, axial sections, TR 4800, TE 128, B value 1000 Axial sections, ADC map, TR 4800, TE 128 Findings: Enlargement of the sella turcica is not present. The optic chiasm and infundibular are not remarkable. Prepontine and interpeduncular cisterns are not enlarged. There is no localized enlargement of the medulla or lamine. Fourth ventricle and cerebellar tonsils appear normal in position. No subacute area of hemorrhage density is seen. Mass in the cerebellopontine angle region is not evident. Globes symmetrical. Orbital musculature including medial lateral rectus muscles do not exhibit abnormality. Diffusion-weighted images demonstrate no focus of restricted diffusion. 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 Impression: Negative for acute hemorrhage mass effect or midline shift No acute infarct Dictated By: Alli Beckman MD Signed By: <Electronically signed by Alli Beckman MD in OV> 07/11/25 1428 Ordering Physician: Cindi Joy MD Date of Service: 07/11/25 Procedure(s): CT head/brain wo con Accession Number(s): [id number] cc: Alli Beckman MD; Cindi Joy MD; Mathew Garcia MD~ Examination: CT brain head without contrast. 2-D sagittal coronal reconstructions Date and time of exam: July 11, 2025, 1141 hours INDICATIONS: Onset dizziness and unsteady gait today, ground-level fall also 06/22/2025 CTDI: vol (mGy): 45.8 DLP: (mGycm): 936 Technique: Multiple CT axial sections of the brain have been obtained, 5 mm slice thickness. Contrast has not been administered. 2-D sagittal, coronal reconstructions have been obtained Low dose protocols were performed. One or more of the following dose reduction techniques were used; automated exposure control, adjustment of the mA and/or KV according to patient size, use of iterative reconstruction technique. Findings: No significant ventricular enlargement. Stable left frontal encephalomalacia compared with 06/22/2025 Intra-axial or extra-axial hemorrhage density is not seen. No mass effect or midline shift Basal cisterns are not remarkable. Fourth ventricle is midline. Cranial vault intact. Impression: Negative for acute hemorrhage, mass effect or midline shift As clinically warranted, brain MRI follow-up would best assess for acute ischemic change Dictated By: Alli Beckman MD Signed By: <Electronically signed by Alli Beckman MD in OV> 07/11/25 1201 Medications / Prescriptions Medications or Prescriptions considered but not ordered:: None Medication administrations:: Medication Administration History Sodium Chloride (Ns) 1,000 mls @ 999 mls/hr IV .Q1H1M ONE Stop: 07/11/25 18:49 Last Admin: 07/11/25 18:07 Dose: 999 mls/hr Documented By: DB Discontinued Medications Sodium Chloride (Ns) 1,000 mls @ 999 mls/hr IV .Q1H1M ONE Stop: 07/11/25 12:33 Last Infusion: 07/11/25 13:19 Dose: Infused Documented By: Admin: 07/11/25 12:18 Dose: 999 mls/hr Documented By: DB See above Consultations Consultation(s) initiated? (list below): No Diagnosis Dizziness Differential Diagnosis: benign paroxysmal positional vertigo, orthostatic hypotension, cerebrovascular accident and transient cerebral ischemia Most likely diagnosis given after review of the tests above:: Weakness Admission Indicated Admission indicated?: not indicated Explain why admission is indicated or not indicated:: signed out pending final disposition Admission Request Was there a request for admission?: No Disposition Plan Disposition Plan: other (specify) (Signed out to Dr. Rucker ) Discharge Plan Prescriptions/Referrals Prescriptions/Med Rec: No Action No Known Home Medications Referrals: Mathew Garcia MD [Primary Care Provider, Family Practice] - In 1 week Problem List Clinical Impression: Dizziness, Abnormal gait Patient/Caregiver Discharge Instructions Print Language: Comoran
[2025-07-11] MEDS: SODIUM CHLORIDE 0.9% 1000 ML 1,000 ML 999 ML IV ×2 (12:18→18:07)
--- NOTE | 2025-07-11 15:05 | PC.NURSE ---
pt back from MRI. Awaiting results
--- NOTE | 2025-07-11 16:35 | PC.NURSE ---
given sandwich and juice
[2025-07-11 17:36] LABS: Troponin I < 0.020 ng/mL (0.0-0.045)
--- NOTE | 2025-07-11 17:46 | PC.NURSE ---
ASSISTED PT WITH AMBULATION. PT EITHER HOLDING ON TO NURSE TO TO WALL. DR. ARAIZA INFORMED AND STATED I CAN'T DISCHARGE HIM IF HE CAN'T WALK ON HIS OWN.
--- NOTE | 2025-07-11 18:34 | EDNOTE_ITS ---
Emergency Room Addendum <Lisa Womack - Last Filed: 07/11/25 20:05> Addendum Narrative: 1800: Care assumed from Dr. Joy (emergency physician). Past medical, surgical, social and family history reviewed. Vitals and home medications reviewed. Results and treatment plan discussed. I will assume the care of the patient at this time and will follow the patient, pending PT/OT in the AM. The following addendum documentation note is intended to reflect any pending in formation, findings, or radiology results not included in the patient?s initial chart by the previous shift scribe. 0600: Care assumed by Dr. Joy (emergency physician). Past medical, surgical, social and family history reviewed. Vitals and home medications reviewed. Results and treatment plan discussed. They will assume the care of the patient at this time and will follow the patient, pending PT/OT. <Doriangrecia Rucker DO - Last Filed: 07/12/25 04:13> Addendum Narrative: 1800: Care assumed from Dr. Joy (emergency physician). Past medical, surgical, social and family history reviewed. Vitals and home medications reviewed. Results and treatment plan discussed. I will assume the care of the patient at this time and will follow the patient, pending PT/OT in the AM. The following addendum documentation note is intended to reflect any pending information, findings, or radiology results not included in the patient?s initial chart by the previous shift scribe. 0600: Care assumed by Dr. Joy (emergency physician). Past medical, surgical, social and family history reviewed. Vitals and home medications reviewed. Results and treatment plan discussed. They will assume the care of the patient at this time and will follow the patient, pending PT/OT. Patient was not completely stable condition during my shift. There were no issues. No vital sign abnormalities that had to be attended to.
--- NOTE | 2025-07-11 18:34 | PC.NURSE ---
GIVEN MEAL TRAY
[2025-07-12 02:28] VITALS: BP 136/84; PULSE 70; RESP 15; O2SAT 97
[2025-07-12 05:44] VITALS: BP 142/79; PULSE 81; RESP 18; TEMP 36.6; O2SAT 99
[2025-07-12 08:44] VITALS: BP 157/91; PULSE 77; RESP 16; TEMP 36.6; O2SAT 97
--- NOTE | 2025-07-12 09:45 | PC.PT ---
PT eval complete. Please see note for further detail.
--- NOTE | 2025-07-12 10:05 | PD.EDADDENDU ---
Emergency Room Addendum Addendum Narrative: 0600: Care assumed from Dr. Rucker, the previous shift emergency physician. Past medical, surgical, social and family history reviewed. Vitals and home medications reviewed. I will assume the care of the patient at this time, pending PT eval and final disposition. Please refer to the emergency department record for history and examination from initial visit.?The following addendum documentation note is intended to reflect any pending information, findings, or radiology results not included in the patient?s initial chart. 1110a: Patient has been accepted at [facility]. EMS p/u at 15:00h.
--- NOTE | 2025-07-12 11:15 | PC.CC ---
Addendum entered by Petty Corrigan 07/12/25 15:23: 1500-Dispatch called and informed they are delayed on p/u for the pt. Pt will be p./u today at 1600 to [facility] Addendum entered by Petty Corrigan 07/12/25 11:51: 1151-P/U ETA 1500 to [facility] Addendum entered by Petty Corrigan 07/12/25 11:38: 1136-ASW called [facility] and they provided Trip Reservation #[id number]. ASW contacted [facility] to arrange a Will Call transport. Dispatch will call once they receive the confirmation from [facility]. Original Note: 1115-ASW uploaded the pts packet to [employer]. Pt accepted to [facility]. ASW spoke with Aylin Burch and she accepted pt. ASW informed Aylin that pt has Medicare and [facility] and does not have a 3 midnight stay. Aylin stated they can work with the [facility] and accepted the pt. ASW will arrange transportation for the pt. field kiln burner and RN are aware. All other SNF facilities will accept unless pt has a 3 midnight stay.
[2025-07-12 15:01] VITALS: BP 141/80; PULSE 62; RESP 16; TEMP 36.6; O2SAT 99
[2025-07-12 15:55] VITALS: BP 141/80; PULSE 62; RESP 16; TEMP 36.8; O2SAT 97
== END 2025-07-12 15:55 | disposition skilled nursing facility (03) ==
PROVIDERS: Nurse Practitioner Family; Emergency Provider Emergency Medicine; PCP Family Medicine
DX: I67.82 Cerebral ischemia (principal)
CPT/HCPCS: 36415; 70450; 70551; 80053; 80307; 81001; 83735; 83880; 84484; 85025; 85610; 85730; 93005; 96360; 96361; 99284; J7030